=== PATIENT | male | born 1955 | race Caucasian/White ===

== ENCOUNTER 2020-02-21 06:17 | Outpatient (CLI) | payer BC, OTHER ==
[2020-02-21 10:21] VITALS: BMI 28.0
[2020-02-21 11:00] LABS: #Basophils 0.1 thou/uL (0.0-0.2); #Eosinphils 0.4 thou/uL (0.0-0.7); #Lymphocytes 2.6 thou/uL (1.20-3.40); #Monocytes 0.9 thou/uL (0.11-0.59); #Neutrophils 6.8 thou/uL (1.40-6.50); %Basophils 0.6 % (0.0-1.0); %Eosinophils 3.6 % (0.0-10.0); %Lymphocytes 24.1 % (21.0-51.0); %Monocytes 8.3 % (0.0-10.0); %Neutrophils 63.5 % (42.0-75.0); Hemoglobin 14.3 g/dL (14.0-18.0); Mean Corpuscular HGB CONC 31.2 g/dL (32.0-36.0); Mean Corpuscular Hemoglobin 28.2 pg (27.0-31.0); Mean Corpuscular Volume 90.4 fL (78.0-98.0); Mean Platelet Volume 9.4 fL (7.4-10.4); Platelet Count 174 thou/uL (130-400); RBC Distribution Width 12.4 % (11.5-14.5); Red Blood Cell (RBC) Count 5.07 mill/uL (4.70-6.10); White Blood Cell (WBC) Count 10.7 thou/uL (4.8-10.8)
[2020-02-21 11:19] LABS: Anion Gap 14 mmol/L (10-20); BUN (Urea Nitrogen) 20 mg/dL (8.4-25.7); Calc. Creatinine Clearance 61 mL/min (70-130); Calcium 9.3 mg/dL (7.8-10.44); Carbon Dioxide 25 mmol/L (23-31); Chloride 103 mmol/L (98-107); Estimated GFR-MDRD 47; Glucose 86 mg/dL (80-115); Potassium 3.8 mmol/L (3.5-5.1); Sodium 138 mmol/L (136-145)
[2020-02-21 11:21] LABS: INR-International Normal Ratio 0.9; PTT 29.7 SEC (22.9-36.1); Prothrombin Time 11.7 sec (12.0-14.7)
[2020-02-21 18:43] LABS: SARS-CoV-2 MS2 Positive; SARS-CoV-2 N Gene Negative; SARS-CoV-2 S Gene Negative; SARS-CoV-2 orf1ab Negative
--- NOTE | 2020-02-21 21:10 | EKG ---
Test Reason : Blood Pressure : / mmHG Vent. Rate : 063 BPM Atrial Rate : 063 BPM P-R Int : 158 ms QRS Dur : 086 ms QT Int : 426 ms P-R-T Axes : 043 048 033 degrees QTc Int : 435 ms Normal sinus rhythm Minimal voltage criteria for LVH, may be normal variant Borderline ECG No previous ECGs available Confirmed by Flo SOUZA ([id number]) on 02/21/2020 9:10:15 PM Referred By: PAT Confirmed By:Flo SOUZA
== END 2020-02-21 06:18 | disposition home or self-care (01) ==
LOC: LABBT 06:17
PROVIDERS: ATTEND Surgery
DX: Z01.818 Encounter for other preprocedural examination (principal); Z11.59 Encounter for screening for other viral diseases; M48.062 Spinal stenosis, lumbar region with neurogenic claudication; M54.16 Radiculopathy, lumbar region; M21.371 Foot drop, right foot
CPT/HCPCS: 80048; 85025; 85610; 85730; 87635; 93005; 93010; U0003

== ENCOUNTER 2020-02-22 07:59 | Observation (INO) | payer BC ==
[2020-02-22] MEDS ORDERED: Fentanyl 100 MCG/2 ML VIAL ONE ×3 (09:41→14:24)
[2020-02-22] MEDS ORDERED: Thrombin 5000 UNITS/5 ML VIAL ONE ×2 (10:13→12:36)
[2020-02-22] MEDS ORDERED: Mag-Al 1200 mg/1200 mg/30 ML UDCUP PO PRN (13:38)
[2020-02-22] MEDS ORDERED: tiZANidine HCl 4 MG TAB PO PRN (13:38)
[2020-02-22] MEDS ORDERED: Bisacodyl 10 MG SUPP PR PRN (13:38)
[2020-02-22] MEDS ORDERED: Ondansetron PF 4 MG/2 ML Vial IVP PRN (13:38)
[2020-02-22] MEDS ORDERED: Milk Of Magnesia 30 ML UDCUP PO PRN (13:38)
[2020-02-22] MEDS ORDERED: Fleet Enema 133 ML BOT PR PRN (13:38)
[2020-02-22] MEDS ORDERED: Acetaminophen/Codeine 30-300mg Tablet PO PRN (13:38)
[2020-02-22] MEDS ORDERED: Acetaminophen 325 MG TAB PO PRN (13:38)
[2020-02-22] MEDS ORDERED: PACU-Morphine 4MG/ML VIAL SLOW IVP PRN (13:45)
[2020-02-22] MEDS ORDERED: Promethazine HCl 25 MG/ML VIAL IM PRN (13:45)
[2020-02-22] MEDS ORDERED: HYDROmorphone 2 MG/ML VIAL SLOW IVP PRN (13:45)
[2020-02-22] MEDS ORDERED: Morphine Sulfate 2 MG/ML SYRINGE SLOW IVP PRN (13:45)
[2020-02-22] MEDS ORDERED: Promethazine HCl 25 MG/ML VIAL SLOW IVP PRN (13:45)
[2020-02-22] MEDS ORDERED: Ondansetron HCl/PF 4 MG/2 ML Vial IVP PRN (13:45)
[2020-02-22] MEDS ORDERED: Meperidine HCl/PF 25 MG/ML VIAL SLOW IVP PRN (13:45)
[2020-02-22] MEDS ORDERED: Promethazine HCl 25 MG/ML VIAL ONE (14:23)
[2020-02-22] MEDS ORDERED: Dexamethasone 10 MG/ML VIAL SLOW IVP SCH (14:48)
[2020-02-22 15:45] VITALS: BMI 27.1
[2020-02-22] MEDS: Sodium Chloride 0.9% 1,000 ML IV SCH (15:57)
[2020-02-22] MEDS ORDERED: Dexamethasone 20 MG/5 ML VIAL ONE (16:07)
[2020-02-22] MEDS ORDERED: EPHEDRINE 25 MG/5 ML SYRINGE ONE (16:07)
[2020-02-22] MEDS ORDERED: Glycopyrrolate 0.2 MG/ML 5 ML SYRINGE ONE (16:07)
[2020-02-22] MEDS ORDERED: PROPOFOL 200 MG/20 ML VIAL ONE (16:07)
[2020-02-22] MEDS ORDERED: Rocuronium Bromide 10 MG/ML (10ML VIAL) ONE (16:07)
[2020-02-22] MEDS ORDERED: PHENYLEPHRINE-NS 100 MCG/ML 10 ML SYRINGE ONE (16:07)
[2020-02-22] MEDS ORDERED: Lidocaine 1% PF 5 ML VIAL ONE (16:07)
[2020-02-22] MEDS ORDERED: Ondansetron PF 4 MG/2 ML Vial ONE (16:07)
[2020-02-22] MEDS ORDERED: CEFAZOLIN 2 GM in Premix Bag 1 BAG IVPB SCH (17:00)
[2020-02-22] MEDS: HYDROcodone/Acetaminophen 7.5/325 mg Tablet PO PRN ×2 (17:42→21:30)
[2020-02-22] MEDS: CEFAZOLIN 2 GM in Premix Bag 1 BAG IVPB SCH (20:03)
[2020-02-22] MEDS: traMADol HCl 50 MG TAB PO PRN (23:12)
[2020-02-23] MEDS: HYDROcodone/Acetaminophen 7.5/325 mg Tablet PO PRN ×4 (01:27→16:05)
[2020-02-23] MEDS: CEFAZOLIN 2 GM in Premix Bag 1 BAG IVPB SCH (05:07)
[2020-02-23 06:07] LABS: #Lymphocytes 1.6 thou/uL (1.20-3.40); #Monocytes 1.2 thou/uL (0.11-0.59); #Neutrophils 13.1 thou/uL (1.40-6.50); %Basophils 0.1 % (0.0-1.0); %Eosinophils 0.2 % (0.0-10.0); %Lymphocytes 9.7 % (21.0-51.0); %Monocytes 7.6 % (0.0-10.0); %Neutrophils 82.3 % (42.0-75.0); Hemoglobin 12.2 g/dL (14.0-18.0); Mean Corpuscular HGB CONC 31.9 g/dL (32.0-36.0); Mean Corpuscular Hemoglobin 28.7 pg (27.0-31.0); Mean Platelet Volume 9.4 fL (7.4-10.4); Platelet Count 144 thou/uL (130-400); RBC Distribution Width 12.1 % (11.5-14.5); Red Blood Cell (RBC) Count 4.26 mill/uL (4.70-6.10); White Blood Cell (WBC) Count 15.9 thou/uL (4.8-10.8)
--- NOTE | 2020-02-23 06:14 | OP ---
DATE OF PROCEDURE: 02/22/2020 LOCATION: OR 12. [employer]NAGER: Monica Everett PA-C. WOUND CLASSIFICATION: Type 1 wound. PREPROCEDURE DIAGNOSES: Multilevel lumbar stenosis with low back and leg pain and foot weakness. POSTPROCEDURE DIAGNOSES: Multilevel lumbar stenosis with low back and leg pain and foot weakness. PROCEDURE PERFORMED: L2-L3, L3-L4, L4-L5, and L5-S1 laminectomies, partial facetectomies, and foraminotomies. DESCRIPTION OF PROCEDURE: After informed consent was obtained from the patient, the patient was brought to the OR. Proper patient, pause, and identification were carried out. He was placed under excellent general endotracheal anesthesia and positioned prone on the OR table. All appropriate points were padded. We identified the L2 through S1 dorsal spines and lamina. A linear gurdeep was made over this region. This area was sterilely cleansed, prepared, and draped and proper patient, pause, and identification were carried out. The wound was then opened with a combination of sharp, monopolar, and blunt dissection. The L2, L3, L4, L5, and S1 dorsal spines and lamina were all exposed. Localization film confirmed our area of interest. We then performed L2, L3, L4, L5, S1 laminectomies, partial facetectomies, and foraminotomies with excellent decompression of common dural tube and nerve roots. There was no spinal fluid leak. Copious irrigation and maximal hemostasis occurred throughout. The wound was then closed in anatomic layers following sprinkling of vancomycin powder. The patient then emerged from anesthesia. Job ID: [id number]
[2020-02-23 06:28] LABS: Anion Gap 12 mmol/L (10-20); BUN (Urea Nitrogen) 20 mg/dL (8.4-25.7); Calc. Creatinine Clearance 69 mL/min (70-130); Calcium 8.3 mg/dL (7.8-10.44); Carbon Dioxide 25 mmol/L (23-31); Chloride 102 mmol/L (98-107); Estimated GFR-MDRD 57; Glucose 100 mg/dL (80-115); Potassium 4.1 mmol/L (3.5-5.1); Sodium 135 mmol/L (136-145)
[2020-02-23] MEDS: Sodium Chloride 0.9% 1,000 ML IV SCH ×2 (06:30→17:06)
[2020-02-23] MEDS ORDERED: Ketorolac Tromethamine 30 MG/ML VIAL IVP PRN (08:05)
[2020-02-23] MEDS: traMADol HCl 50 MG TAB PO PRN (08:06)
[2020-02-23] MEDS: Hydrochlorothiazide 25 MG TAB PO SCH (08:07)
[2020-02-23] MEDS: NIFEdipine XL 90 MG TAB PO SCH (08:08)
[2020-02-23] MEDS: Bupropion 150 MG XL TAB PO SCH (08:09)
[2020-02-23] MEDS: Nebivolol HCl 5 MG TAB PO SCH (08:09)
[2020-02-23] MEDS: Venlafaxine HCl XR 150 MG CAP PO SCH (08:09)
[2020-02-23] MEDS: Losartan 25 MG TAB PO SCH (08:10)
[2020-02-23] MEDS ORDERED: Ketorolac Tromethamine 15 MG/ML VIAL IVP SCH (08:15)
[2020-02-23] MEDS ORDERED: Ketorolac Tromethamine 30 MG/ML VIAL IVP SCH (08:15)
[2020-02-23] MEDS: Potassium Chloride 10 MEQ TAB PO SCH (09:15)
--- NOTE | 2020-02-23 11:06 | PRG ---
DATE OF SERVICE: Mr. Wolf is doing well postoperative day 1 from L2-S1 laminectomy, partial facetectomy, foraminotomies, very pleased with how he is doing as he has had resolution of his leg pain. He does have low back pain related to incisional pain and he needs another day in the hospital for pain control. We will plan to dismiss him likely tomorrow. Job ID: [id number]
[2020-02-23] MEDS: Morphine 2 MG/ML SYRINGE SLOW IVP PRN ×2 (16:05→21:39)
[2020-02-24] MEDS: HYDROcodone/Acetaminophen 7.5/325 mg Tablet PO PRN ×3 (01:50→17:06)
[2020-02-24] MEDS: Sodium Chloride 0.9% 1,000 ML IV SCH ×2 (05:30→20:02)
[2020-02-24] MEDS: Bupropion 150 MG XL TAB PO SCH (08:21)
[2020-02-24] MEDS: Hydrochlorothiazide 25 MG TAB PO SCH (08:22)
[2020-02-24] MEDS: NIFEdipine XL 90 MG TAB PO SCH (08:22)
[2020-02-24] MEDS: Nebivolol HCl 5 MG TAB PO SCH (08:22)
[2020-02-24] MEDS: Potassium Chloride 10 MEQ TAB PO SCH (08:23)
[2020-02-24] MEDS: Losartan 25 MG TAB PO SCH (08:23)
[2020-02-24] MEDS: Venlafaxine HCl XR 150 MG CAP PO SCH (08:28)
[2020-02-24] MEDS: traMADol HCl 50 MG TAB PO PRN (10:15)
--- NOTE | 2020-02-24 11:20 | PRG ---
DATE OF SERVICE: 02/24/2020 Mr. Wolf is doing well following L2 through S1 laminectomy at postoperative day #2. His pain was better controlled. He has met criteria for dismissal. We will discharge him. Job ID: [id number]
[2020-02-24] MEDS: Ketorolac Tromethamine 30 MG/ML VIAL IVP SCH ×3 (11:45→22:34)
[2020-02-25] MEDS: Ketorolac Tromethamine 30 MG/ML VIAL IVP SCH (04:40)
[2020-02-25 08:25] VITALS: BP 137/84; TEMP 98.8
[2020-02-25] MEDS: Hydrochlorothiazide 25 MG TAB PO SCH (08:32)
[2020-02-25] MEDS: Losartan 25 MG TAB PO SCH (08:32)
[2020-02-25] MEDS: Nebivolol HCl 5 MG TAB PO SCH (08:32)
[2020-02-25] MEDS: Potassium Chloride 10 MEQ TAB PO SCH (08:33)
[2020-02-25] MEDS: NIFEdipine XL 90 MG TAB PO SCH (08:33)
[2020-02-25] MEDS: Bupropion 150 MG XL TAB PO SCH (08:33)
[2020-02-25] MEDS: Venlafaxine HCl XR 150 MG CAP PO SCH (08:33)
[2020-02-25] MEDS: HYDROcodone/Acetaminophen 7.5/325 mg Tablet PO PRN (10:09)
[2020-02-25] MEDS: Sodium Chloride 0.9% 1,000 ML IV SCH (10:10)
--- NOTE | 2020-02-25 10:59 | DIS ---
DATE OF ADMISSION: 02/24/2020 DATE OF DISCHARGE: 02/25/2020 ADMISSION DIAGNOSES: Status post lumbar laminectomy. DISCHARGE DIAGNOSIS: Status post lumbar laminectomy. Mr. Wolf was admitted to [facility] for postoperative care after lumbar decompression. His hospital course was uncomplicated. No consultations were ordered. His pain was well controlled with our usual oral and IV pain medications. He ambulated early and was discharged home with outpatient followup planned in 2 weeks. Job ID: [id number]
== END 2020-02-25 10:55 | disposition home or self-care (01) ==
LOC: SDC 07:59 → SURG B 15:35 → SDC 02-24 13:20 → SURG B 02-24 13:20
PROVIDERS: ADMIT Surgery; ATTEND Surgery
PROC: 01NB0ZZ Release Lumbar Nerve, Open Approach (ICD-10-PCS; principal; 2020-02-25)
DX: M48.061 Spinal stenosis, lumbar region without neurogenic claudication (principal); M54.16 Radiculopathy, lumbar region; I12.9 Hypertensive chronic kidney disease with stage 1 through stage 4 chronic kidney disease, or unspecified chronic kidney disease; N18.9 Chronic kidney disease, unspecified; F17.200 Nicotine dependence, unspecified, uncomplicated; Z79.899 Other long term (current) drug therapy; Z88.8 Allergy status to other drugs, medicaments and biological substances
CPT/HCPCS: 36415; 76000; 80048; 85025; 96374; 96376; G0378; J0690; J1100; J1885; J2001; J2270; J2405; J2550; J2704; J3010; J3370

== ENCOUNTER 2020-06-05 07:34 | Outpatient (CLI) | payer BC, OTHER ==
[2020-06-05 14:36] LABS: Hemoglobin 13.7 g/dL (14.0-18.0); Mean Corpuscular HGB CONC 32.5 g/dL (32.0-36.0); Mean Corpuscular Volume 89.1 fL (78.0-98.0); Mean Platelet Volume 9.6 fL (7.4-10.4); Platelet Count 228 thou/uL (130-400); RBC Distribution Width 12.7 % (11.5-14.5); Red Blood Cell (RBC) Count 4.71 mill/uL (4.70-6.10); White Blood Cell (WBC) Count 10.5 thou/uL (4.8-10.8)
[2020-06-05 14:42] LABS: Anion Gap 18 mmol/L (10-20); BUN (Urea Nitrogen) 26 mg/dL (8.4-25.7); Calc. Creatinine Clearance 0 mL/min (70-130); Calcium 9.7 mg/dL (7.8-10.44); Carbon Dioxide 23 mmol/L (23-31); Chloride 100 mmol/L (98-107); Estimated GFR-MDRD 47; Glucose 89 mg/dL (80-115); Potassium 3.5 mmol/L (3.5-5.1); Sodium 137 mmol/L (136-145)
[2020-06-05 14:43] LABS: Bilirubin Negative (Negative); Blood, Urine Trace (Negative); Clarity Clear (Clear); Glucose, Urine (Dipstick) Normal (Negative); Ketone, Urine Negative (Negative); Leukocyte 500 Leu/uL (Negative); Nitrite Negative (Negative); Protein, Urine (Dipstick) 10 mg/dL (Neg-Trace); Specific Gravity, Urine 1.013 (1.002-1.036); Squamous Epithelial 0-3 HPF (0-3); Urobilinogen Normal mg/dL (Less than 2); WBC/HPF Greater than 50 HPF (0-3)
[2020-06-05 14:50] LABS: Bacteria/HPF 1+ HPF (None Seen)
[2020-06-06 12:51] LABS: SARS-CoV-2 MS2 Positive; SARS-CoV-2 N Gene Negative; SARS-CoV-2 S Gene Negative; SARS-CoV-2 by NAA Not Detected (NotDetected); SARS-CoV-2 orf1ab Negative
== END 2020-06-05 07:35 | disposition home or self-care (01) ==
LOC: LABBT 07:34
PROVIDERS: ATTEND Urology
DX: Z01.818 Encounter for other preprocedural examination (principal); Z20.828 Contact with and (suspected) exposure to other viral communicable diseases; N40.0 Benign prostatic hyperplasia without lower urinary tract symptoms
CPT/HCPCS: 80048; 81001; 85027; 87077; 87086; 87186; 87635; 93005; 93010; U0003

== ENCOUNTER 2020-06-07 14:54 | Emergency (ER) | payer BC, OTHER ==
[2020-06-07 15:41] LABS: #Basophils 0.1 thou/uL (0.0-0.2); #Eosinphils 0.3 thou/uL (0.0-0.7); #Lymphocytes 2.6 thou/uL (1.20-3.40); #Monocytes 0.6 thou/uL (0.11-0.59); #Neutrophils 5.6 thou/uL (1.40-6.50); %Basophils 0.8 % (0.0-1.0); %Eosinophils 3.1 % (0.0-10.0); %Lymphocytes 28.3 % (21.0-51.0); %Monocytes 6.6 % (0.0-10.0); %Neutrophils 61.3 % (42.0-75.0); Mean Corpuscular HGB CONC 32.6 g/dL (32.0-36.0); Mean Corpuscular Hemoglobin 29.5 pg (27.0-31.0); Mean Corpuscular Volume 90.5 fL (78.0-98.0); Mean Platelet Volume 8.8 fL (7.4-10.4); Platelet Count 214 thou/uL (130-400); RBC Distribution Width 12.8 % (11.5-14.5); Red Blood Cell (RBC) Count 4.42 mill/uL (4.70-6.10); White Blood Cell (WBC) Count 9.1 thou/uL (4.8-10.8)
[2020-06-07 16:03] LABS: Anion Gap 14 mmol/L (10-20); BUN (Urea Nitrogen) 21 mg/dL (8.4-25.7); CK (CPK) 37 U/L (30-200); Calc. Creatinine Clearance 0 mL/min (70-130); Calcium 8.7 mg/dL (7.8-10.44); Carbon Dioxide 25 mmol/L (23-31); Chloride 106 mmol/L (98-107); Estimated GFR-MDRD 49; Glucose 116 mg/dL (80-115); Potassium 3.5 mmol/L (3.5-5.1); Sodium 141 mmol/L (136-145)
[2020-06-07] MEDS ORDERED: Fentanyl 100 MCG/2 ML VIAL ONE (16:07)
--- NOTE | 2020-06-07 16:08 | CT ---
CT BRAIN WITHOUT CONTRAST: HISTORY: Dizziness, fall, trauma to the right side of the head. Headache FINDINGS: No evidence of acute infarct, hemorrhage, midline shift or abnormal extra-axial fluid collections is seen. The ventricular size is appropriate and the basilar cisterns are patent. The bony calvarium is intact. The mastoid air cells are well aerated. There is mucosal disease in the ethmoid sinuses. IMPRESSION: No CT evidence of acute intracranial process.
--- NOTE | 2020-06-07 16:13 | CT ---
CT CERVICAL SPINE WITH CORONAL AND SAGITTAL REFORMATIONS AND NO IV CONTRAST: HISTORY: Fall, neck pain FINDINGS: Multilevel degenerative changes are present. There is fusion at C2-3 level. There is loss of cervical lordosis with straightening of the cervical spine. No fracture, subluxation or facet malalignment is identified. No prevertebral soft tissue swelling is apparent. The visualized lung apices are unremarkable. IMPRESSION: No CT evidence for fracture or traumatic subluxation.
--- NOTE | 2020-06-07 17:13 | RAD ---
PORTABLE CHEST ONE VIEW: 05/07/20 at 4:22 p.m. HISTORY: Dizziness, fall. FINDINGS: The heart size is normal. The aorta is tortuous. The lungs are well expanded without lobar consolidat ion, pneumothoraces, or pleural effusions. IMPRESSION: No radiographic evidence of acute cardiopulmonary process. POS: OFF
== END 2020-06-07 17:10 | disposition home or self-care (01) ==
LOC: ERS 14:54
DX: R55 Syncope and collapse (principal); S01.111A Laceration without foreign body of right eyelid and periocular area, initial encounter; I10 Essential (primary) hypertension; F17.210 Nicotine dependence, cigarettes, uncomplicated; W18.30XA Fall on same level, unspecified, initial encounter
CPT/HCPCS: 36415; 70450; 71045; 72125; 80048; 82550; 83735; 83880; 84484; 85025; 93005; 96374; J3010

== ENCOUNTER 2020-06-22 06:35 | Outpatient (CLI) | payer BC, OTHER ==
[2020-06-22 16:33] LABS: Bacteria/HPF None Seen HPF (None Seen); Bilirubin Negative (Negative); Blood, Urine Negative (Negative); Clarity Clear (Clear); Glucose, Urine (Dipstick) Normal (Negative); Ketone, Urine Negative (Negative); Leukocyte 25 Leu/uL (Negative); Nitrite Negative (Negative); Protein, Urine (Dipstick) 30 mg/dL (Neg-Trace); RBC/HPF 0-3 HPF (0-3); Specific Gravity, Urine 1.021 (1.002-1.036); Squamous Epithelial 0-3 HPF (0-3); Urobilinogen Normal mg/dL (Less than 2)
[2020-06-23 14:47] LABS: SARS-CoV-2 MS2 Positive; SARS-CoV-2 N Gene Negative; SARS-CoV-2 S Gene Negative; SARS-CoV-2 by NAA Not Detected (NotDetected); SARS-CoV-2 orf1ab Negative
== END 2020-06-22 06:36 | disposition home or self-care (01) ==
LOC: LABBT 06:35
PROVIDERS: ATTEND Urology
DX: Z01.812 Encounter for preprocedural laboratory examination (principal); N40.1 Benign prostatic hyperplasia with lower urinary tract symptoms; Z20.828 Contact with and (suspected) exposure to other viral communicable diseases
CPT/HCPCS: 81001; 87086; 87635; U0003

== ENCOUNTER 2020-06-26 07:57 | Day surgery (SDC) | payer BC ==
[2020-06-26] MEDS ORDERED: Levofloxacin 500 mg/D5W 100 ml Premix Bag ONE (08:24)
[2020-06-26] MEDS ORDERED: Ondansetron PF 4 MG/2 ML Vial ONE ×2 (08:31→14:15)
[2020-06-26] MEDS ORDERED: Famotidine/PF 20 mg/2ml Vial ONE (08:31)
[2020-06-26] MEDS ORDERED: Scopolamine 1.5 mg/72 hour Patch ONE (08:31)
[2020-06-26] MEDS ORDERED: Fentanyl 100 MCG/2 ML VIAL ONE ×3 (12:09→13:57)
[2020-06-26] MEDS ORDERED: HYDROmorphone 2 MG/ML VIAL SLOW IVP PRN (12:46)
[2020-06-26] MEDS ORDERED: Ondansetron HCl/PF 4 MG/2 ML Vial IVP PRN (12:46)
[2020-06-26] MEDS ORDERED: Promethazine HCl 25 MG/ML VIAL SLOW IVP PRN (12:46)
[2020-06-26] MEDS ORDERED: Oxybutynin 5 MG TAB ONE (13:36)
[2020-06-26] MEDS ORDERED: Ketorolac Tromethamine 30 MG/ML VIAL ONE (13:36)
[2020-06-26] MEDS ORDERED: PROPOFOL 200 MG/20 ML VIAL ONE (14:15)
[2020-06-26] MEDS ORDERED: Lidocaine 1% PF 5 ML VIAL ONE (14:15)
[2020-06-26] MEDS ORDERED: Dexamethasone 20 MG/5 ML VIAL ONE (14:15)
[2020-06-26] MEDS ORDERED: HYDROcodone/Acetaminophen 5/325 mg Tablet ONE (14:44)
--- NOTE | 2020-06-26 17:58 | OP ---
DATE OF PROCEDURE: 06/26/2020 PREOPERATIVE DIAGNOSIS: Bladder neck contracture. POSTOPERATIVE DIAGNOSIS: Bladder neck contracture. PROCEDURE PERFORMED: Transurethral resection of bladder neck contracture - PlasmaButton. ANESTHESIA: General. COMPLICATIONS: None. BLOOD LOSS: None. SPECIMEN: None. DESCRIPTION OF PROCEDURE: After informed consent, the patient was taken to the operating room, transferred to the table under his own power. Anesthesia was established. A time-out was performed showing the correct patient, site, and procedure. Preoperative antibiotics were administered. He was prepped and draped in the lithotomy position. 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 I used the PlasmaButton at this point to resect the bladder neck and regrowth from the bladder neck back to the verumontanum. This was carried out laterally and then the bladder entered, which was then systematically examined, noting no mucosal abnormalities. Both ureters were normal in appearance, effluxing urine and uninvolved with resection. There was no active bleeding, and so at this point, once adequate resection was completed, the scope was withdrawn and a 20-Malay catheter placed with 20 mL instilled in the balloon. This was connected to bag drainage. He was awoken from anesthesia, transferred back to his hospital bed and taken to PACU in stable condition, where he will be discharged home upon recovery. Job ID: [id number]
== END 2020-06-26 15:20 | disposition home or self-care (01) ==
LOC: SDC 07:57
PROVIDERS: ATTEND Urology
PROC: 0TBC8ZZ Excision of Bladder Neck, Via Natural or Artificial Opening Endoscopic (ICD-10-PCS; principal; 2020-06-26)
DX: N40.1 Benign prostatic hyperplasia with lower urinary tract symptoms (principal); N13.8 Other obstructive and reflux uropathy; E29.1 Testicular hypofunction; Z79.899 Other long term (current) drug therapy; Z88.8 Allergy status to other drugs, medicaments and biological substances
CPT/HCPCS: J1100; J1885; J1956; J2405; J2704; J3010; S0028

== ENCOUNTER 2022-02-07 12:59 | Outpatient (CLI) | payer BC, MEDICARE | END 2022-02-07 13:00 | disposition home or self-care (01) | LOC: TBSIIMAG 12:59 | PROVIDERS: ATTEND Surgery | DX: M47.22 Other spondylosis with radiculopathy, cervical region (principal) | CPT/HCPCS: 72050; 72141 ==

== ENCOUNTER 2022-03-07 16:38 | Emergency (ER) | payer BC, MEDICARE ==
[~2022-03-07 16:38] MED LIST: Iopamidol-370 76% 500 ML 1 ML ONE
[2022-03-07] MEDS ORDERED: Morphine 4 MG/ML VIAL ONE ×2 (19:11→21:36)
[2022-03-07] MEDS ORDERED: Diazepam 5 MG TAB ONE (19:11)
[2022-03-07 19:50] LABS: #Lymphocytes 0.7 thou/uL (1.20-3.40); #Monocytes 0.6 thou/uL (0.11-0.59); #Neutrophils 8.4 thou/uL (1.40-6.50); %Basophils 0.1 % (0.0-1.0); %Eosinophils 0.3 % (0.0-10.0); %Lymphocytes 6.9 % (21.0-51.0); %Monocytes 6.5 % (0.0-10.0); %Neutrophils 86.3 % (42.0-75.0); Hemoglobin 15.1 g/dL (14.0-18.0); Mean Corpuscular HGB CONC 31.6 g/dL (32.0-36.0); Mean Corpuscular Hemoglobin 29.7 pg (27.0-31.0); Mean Platelet Volume 8.6 fL (7.4-10.4); Platelet Count 136 thou/uL (130-400); RBC Distribution Width 13.1 % (11.5-14.5); Red Blood Cell (RBC) Count 5.09 mill/uL (4.70-6.10); White Blood Cell (WBC) Count 9.7 thou/uL (4.8-10.8)
[2022-03-07 20:17] LABS: ALT (SGPT) 16 U/L (8-55); AST (SGOT) 14 U/L (5-34); Albumin 3.8 g/dL (3.4-4.8); Alkaline Phosphatase 51 U/L (40-110); Anion Gap 13 mmol/L (10-20); BUN (Urea Nitrogen) 15 mg/dL (8.4-25.7); Bilirubin, Total 0.7 mg/dL (0.2-1.2); Calc. Creatinine Clearance 0 mL/min (70-130); Calcium 9.2 mg/dL (7.8-10.44); Carbon Dioxide 27 mmol/L (23-31); Chloride 101 mmol/L (98-107); Glucose 89 mg/dL (80-115); Potassium 3.8 mmol/L (3.5-5.1); Protein, Total 6.8 g/dL (5.8-8.1); Sodium 137 mmol/L (136-145)
== END 2022-03-07 21:50 | disposition home or self-care (01) ==
LOC: ERS 16:38
DX: M51.26 Other intervertebral disc displacement, lumbar region (principal); I10 Essential (primary) hypertension; F17.210 Nicotine dependence, cigarettes, uncomplicated
CPT/HCPCS: 36415; 71270; 80053; 85025; 96372; 96374; J2270

== ENCOUNTER 2022-03-24 08:30 | Inpatient (IN) | payer BC, MEDICARE ==
[2022-03-24 13:21] LABS: Hemoglobin 16.6 g/dL (13.5-17.5); Mean Corpuscular HGB CONC 32.4 g/dL (32.0-36.0); Mean Corpuscular Hemoglobin 28.2 pg (27.0-33.0); Mean Corpuscular Volume 86.9 fl (81.2-95.1); Mean Platelet Volume 11.5 fl (7.4-10.4); Platelet Count 238 10x3/uL (150-450); RBC Distribution Width 13.8 % (11.5-14.5); Red Blood Cell (RBC) Count 5.89 10x6/uL (4.32-5.72); White Blood Cell (WBC) Count 11.9 10x3/uL (3.5-10.5)
[2022-03-24 13:35] LABS: PTT 27.2 sec (22.0-33.0); Prothrombin Time 10.4 sec (9.5-12.1)
[2022-03-24 13:48] LABS: Anion Gap 18 mmol/L (10-20); BUN (Urea Nitrogen) 17 mg/dL (8.4-25.7); Calc. Creatinine Clearance 0 mL/min (70-130); Calcium 10.6 mg/dL (7.8-10.44); Carbon Dioxide 27 mmol/L (23-31); Chloride 97 mmol/L (98-107); Glucose 78 mg/dL (80-115); Potassium 4.7 mmol/L (3.5-5.1); Sodium 137 mmol/L (136-145)
[2022-03-27] MEDS ORDERED: Midazolam HCl 2 mg/2 ml Vial ONE (06:12)
[2022-03-27] MEDS ORDERED: fentaNYL Citrate/PF 100 MCG/2 ML SYRINGE ONE ×3 (06:12→13:17)
[2022-03-27] MEDS ORDERED: HYDROmorphone 2 MG/ML VIAL ONE (06:13)
[2022-03-27] MEDS ORDERED: Thrombin 5000 UNITS/5 ML VIAL ONE (06:33)
[2022-03-27] MEDS ORDERED: Bacitracin Zinc Ointment 30 gm TUBE ONE (06:33)
[2022-03-27] MEDS ORDERED: Vecuronium 10 MG VIAL ONE (07:05)
[2022-03-27] MEDS ORDERED: Rocuronium Bromide 10 MG/ML (10ML VIAL) ONE (07:05)
[2022-03-27] MEDS ORDERED: Ondansetron PF 4 MG/2 ML Vial ONE (07:05)
[2022-03-27] MEDS ORDERED: PROPOFOL 200 MG/20 ML VIAL ONE (07:05)
[2022-03-27] MEDS ORDERED: ePHEDrine 50 MG/ML VIAL ONE (07:05)
[2022-03-27] MEDS ORDERED: Dexamethasone 20 MG/5 ML VIAL ONE (07:05)
[2022-03-27] MEDS ORDERED: CEFAZOLIN 2 GM VIAL ONE (07:15)
[2022-03-27] MEDS ORDERED: Sodium Chloride 0.9% 100 ML ONE (07:15)
[2022-03-27] MEDS ORDERED: Albumin 5% 500 ML ONE (08:30)
[2022-03-27] MEDS ORDERED: SUGAMMADEX SODIUM 200 MG/2 ML VIAL ONE (09:24)
[2022-03-27] MEDS ORDERED: Ondansetron PF 4 MG/2 ML Vial IVP PRN (12:58)
[2022-03-27] MEDS ORDERED: traMADol HCl 50 MG TAB PO PRN (12:58)
[2022-03-27] MEDS ORDERED: Labetalol HCl 100 MG/20 ML VIAL ONE (13:03)
[2022-03-27] MEDS ORDERED: HYDROmorphone 2 MG/ML VIAL SLOW IVP PRN (13:09)
[2022-03-27] MEDS ORDERED: Promethazine HCl 25 MG/ML VIAL IM PRN (13:09)
[2022-03-27] MEDS ORDERED: Promethazine HCl 25 MG/ML VIAL IVPB PRN (13:09)
[2022-03-27] MEDS ORDERED: Ondansetron HCl/PF 4 MG/2 ML Vial IVP PRN (13:09)
[2022-03-27] MEDS ORDERED: Chloraseptic Spray 180 ml Bottle PO PRN (14:14)
[2022-03-27] MEDS: HYDROcodone/Acetaminophen 7.5/325 mg Tablet PO PRN ×2 (15:01→20:54)
[2022-03-27] MEDS: tiZANidine HCl 4 MG TAB PO PRN ×2 (15:01→22:11)
[2022-03-27] MEDS: CEFAZOLIN 2 GM in Sodium Chloride 0.9% 100 ML IVPB SCH ×2 (15:01→22:08)
[2022-03-27] MEDS: Sodium Chloride 0.9% 1,000 ML IV SCH (15:02)
[2022-03-27 15:44] VITALS: BMI 21.5
[2022-03-27] MEDS: Morphine 2 MG/ML VIAL SLOW IVP PRN ×5 (16:02→23:26)
[2022-03-27] MEDS: Acetaminophen/Codeine 30-300mg Tablet PO PRN (19:09)
[2022-03-27] MEDS: Labetalol HCl 100 MG/20 ML VIAL SLOW IVP PRN ×2 (20:53→23:28)
[2022-03-27] MEDS: Cepastat Lozenges 1 LOZ PO PRN (20:55)
[2022-03-28] MEDS ORDERED: HYDROcodone/Acetaminophen 7.5/325 mg Tablet PO PRN (00:03)
[2022-03-28] MEDS: Fentanyl 100 MCG/2 ML VIAL SLOW IVP PRN ×3 (00:15→08:28)
[2022-03-28] MEDS: hydrALAZINE 20 MG/ML VIAL SLOW IVP PRN ×4 (00:19→20:26)
[2022-03-28] MEDS: Cepastat Lozenges 1 LOZ PO PRN (00:19)
[2022-03-28] MEDS: Sodium Chloride 0.9% 1,000 ML IV SCH ×2 (02:25→15:32)
[2022-03-28] MEDS: CEFAZOLIN 2 GM in Sodium Chloride 0.9% 100 ML IVPB SCH ×3 (06:10→23:59)
[2022-03-28] MEDS: Acetaminophen/Codeine 30-300mg Tablet PO PRN (06:18)
[2022-03-28] MEDS: tiZANidine HCl 4 MG TAB PO PRN (06:18)
[2022-03-28 06:37] LABS: #Lymphocytes 1.4 thou/uL (1.20-3.40); #Monocytes 1.3 thou/uL (0.11-0.59); #Neutrophils 12.5 thou/uL (1.40-6.50); %Basophils 0.2 % (0.0-1.0); %Eosinophils 0.3 % (0.0-10.0); %Lymphocytes 9.4 % (21.0-51.0); %Monocytes 8.3 % (0.0-10.0); %Neutrophils 81.9 % (42.0-75.0); Mean Corpuscular HGB CONC 31.4 g/dL (32.0-36.0); Mean Corpuscular Volume 92.5 fL (78.0-98.0); Mean Platelet Volume 9.1 fL (7.4-10.4); Platelet Count 175 thou/uL (130-400); RBC Distribution Width 12.7 % (11.5-14.5); Red Blood Cell (RBC) Count 4.82 mill/uL (4.70-6.10); White Blood Cell (WBC) Count 15.3 thou/uL (4.8-10.8)
[2022-03-28 06:59] LABS: Anion Gap 14 mmol/L (10-20); BUN (Urea Nitrogen) 22 mg/dL (8.4-25.7); Calc. Creatinine Clearance 58 mL/min (70-130); Carbon Dioxide 23 mmol/L (23-31); Chloride 103 mmol/L (98-107); Glucose 99 mg/dL (80-115); Potassium 3.9 mmol/L (3.5-5.1); Sodium 136 mmol/L (136-145)
[2022-03-28] MEDS: Bupropion 150 MG XL TAB PO SCH (08:32)
[2022-03-28] MEDS: NIFEdipine XL 90 MG TAB PO SCH (08:32)
[2022-03-28] MEDS: Losartan 25 MG TAB PO SCH (08:33)
[2022-03-28] MEDS: Multivit, Therapeutic 1 TAB PO SCH (08:33)
[2022-03-28] MEDS: Potassium Chloride 10 MEQ TAB PO SCH (08:34)
[2022-03-28] MEDS: Hydrochlorothiazide 25 MG TAB PO SCH (08:40)
[2022-03-28] MEDS: Venlafaxine HCl XR 150 MG CAP PO SCH (08:40)
[2022-03-28] MEDS: Nebivolol HCl 5 MG TAB PO SCH (08:40)
[2022-03-28] MEDS ORDERED: Diazepam 5 MG TAB PO SCH (09:00)
[2022-03-28] MEDS ORDERED: diphenhydrAMINE 50 MG/ML VIAL IVP PRN (09:07)
[2022-03-28] MEDS ORDERED: Promethazine HCl 25 MG/ML VIAL IM PRN (09:07)
[2022-03-28] MEDS ORDERED: diphenhydrAMINE 25 MG CAP PO PRN (09:07)
[2022-03-28] MEDS ORDERED: Ondansetron PF 4 MG/2 ML Vial IVP PRN (09:07)
[2022-03-28] MEDS ORDERED: Naloxone HCl 0.4 mg/ml Vial IV PRN (09:07)
[2022-03-28] MEDS ORDERED: Zolpidem Tartrate 5 MG TAB PO PRN (09:07)
[2022-03-28] MEDS ORDERED: diphenhydrAMINE 50 MG/ML VIAL IM PRN (09:07)
[2022-03-28] MEDS ORDERED: Communication Order-Pharmacy FS SCH (09:15)
[2022-03-28] MEDS: fentaNYL Citrate/PF 2,000 MCG in Sodium Chloride 0.9% 60 ML IV PRN (11:21)
[2022-03-28 14:27] LABS: Bilirubin Negative (Negative); Blood, Urine 3+ (Negative); Clarity Turbid (Clear); Glucose, Urine (Dipstick) Normal (Negative); Ketone, Urine Negative (Negative); Leukocyte 250 Leu/uL (Negative); Nitrite Negative (Negative); Protein, Urine (Dipstick) Negative (Neg-Trace); RBC/HPF Greater than 50 HPF (0-3); Specific Gravity, Urine 1.013 (1.002-1.036); Squamous Epithelial None Seen HPF (0-3); Urobilinogen Normal mg/dL (Less than 2)
[2022-03-28 14:33] LABS: Bacteria/HPF Rare-Few HPF (None Seen)
[2022-03-28 14:34] LABS: Urine Culture Reflex Yes Yes
[2022-03-28 15:19] LABS: ALT (SGPT) 23 U/L (8-55); AST (SGOT) 27 U/L (5-34); Albumin 3.9 g/dL (3.4-4.8); Alkaline Phosphatase 63 U/L (40-110); Bilirubin, Direct 0.5 mg/dL (0.1-0.3); Bilirubin, Total 1.1 mg/dL (0.2-1.2); Protein, Total 6.7 g/dL (5.8-8.1)
[2022-03-28] MEDS ORDERED: Loratadine 10 MG TAB PO SCH (17:30)
[2022-03-28] MEDS ORDERED: Fluticasone Propionate Nasal Spray 16 gm Bottle NASAL SCH (17:30)
[2022-03-28] MEDS ORDERED: Labetalol HCl 100 MG/20 ML VIAL SLOW IVP PRN ×2 (18:39→18:43)
[2022-03-28] MEDS: Acetaminophen 325 MG TAB PO PRN (20:33)
[2022-03-28] MEDS ORDERED: tiZANidine HCl 4 MG TAB PO PRN (23:22)
[2022-03-29] MEDS: Acetaminophen 325 MG TAB PO PRN (05:21)
[2022-03-29] MEDS: Sodium Chloride 0.9% 1,000 ML IV SCH ×2 (05:23→19:08)
[2022-03-29] MEDS: CEFAZOLIN 2 GM in Sodium Chloride 0.9% 100 ML IVPB SCH ×3 (06:46→22:54)
[2022-03-29 07:00] LABS: #Eosinphils 0.1 thou/uL (0.0-0.7); #Lymphocytes 1.6 thou/uL (1.20-3.40); #Monocytes 1.6 thou/uL (0.11-0.59); #Neutrophils 12.9 thou/uL (1.40-6.50); %Basophils 0.2 % (0.0-1.0); %Eosinophils 0.3 % (0.0-10.0); %Lymphocytes 9.9 % (21.0-51.0); %Monocytes 9.7 % (0.0-10.0); %Neutrophils 79.8 % (42.0-75.0); Hemoglobin 15.3 g/dL (14.0-18.0); Mean Corpuscular HGB CONC 31.4 g/dL (32.0-36.0); Mean Corpuscular Hemoglobin 29.4 pg (27.0-31.0); Mean Corpuscular Volume 93.6 fL (78.0-98.0); Mean Platelet Volume 9.3 fL (7.4-10.4); Platelet Count 179 thou/uL (130-400); RBC Distribution Width 12.8 % (11.5-14.5); Red Blood Cell (RBC) Count 5.22 mill/uL (4.70-6.10); White Blood Cell (WBC) Count 16.2 thou/uL (4.8-10.8)
[2022-03-29 07:12] LABS: INR-International Normal Ratio 1.1; Prothrombin Time 14.1 sec (12.0-14.7)
[2022-03-29 07:13] LABS: PTT 36.3 sec (22.9-36.1)
[2022-03-29 07:34] LABS: ALT (SGPT) 22 U/L (8-55); AST (SGOT) 26 U/L (5-34); Alkaline Phosphatase 63 U/L (40-110); Anion Gap 14 mmol/L (10-20); BUN (Urea Nitrogen) 18 mg/dL (8.4-25.7); Bilirubin, Direct 0.6 mg/dL (0.1-0.3); Bilirubin, Total 1.1 mg/dL (0.2-1.2); Calc. Creatinine Clearance 70 mL/min (70-130); Calcium 9.7 mg/dL (7.8-10.44); Carbon Dioxide 27 mmol/L (23-31); Cardiac Risk 3.4 (Less than 4.5); Chloride 102 mmol/L (98-107); Cholesterol 130 mg/dl (< 200 Desired); Glucose 93 mg/dL (80-115); HDL Cholesterol 38 mg/dL (>60 Neg Risk); LDL Cholesterol, Calculated 76 mg/dL; Potassium 4.2 mmol/L (3.5-5.1); Protein, Total 7.4 g/dL (5.8-8.1); Sodium 139 mmol/L (136-145); Triglycerides 79 mg/dL (Less than 150)
[2022-03-29] MEDS: NIFEdipine XL 90 MG TAB PO SCH (11:22)
[2022-03-29] MEDS: Nebivolol HCl 5 MG TAB PO SCH (11:23)
[2022-03-29] MEDS: Bupropion 150 MG XL TAB PO SCH (11:24)
[2022-03-29] MEDS: Losartan 25 MG TAB PO SCH (11:24)
[2022-03-29] MEDS: Hydrochlorothiazide 25 MG TAB PO SCH (11:24)
[2022-03-29] MEDS: Venlafaxine HCl XR 150 MG CAP PO SCH (11:24)
[2022-03-29] MEDS: Multivit, Therapeutic 1 TAB PO SCH (11:25)
[2022-03-29] MEDS: Potassium Chloride 10 MEQ TAB PO SCH (11:25)
[2022-03-29] MEDS: Fluticasone Propionate Nasal Spray 16 gm Bottle NASAL SCH ×2 (11:25→20:32)
[2022-03-29] MEDS: Loratadine 10 MG TAB PO SCH (11:26)
[2022-03-29] MEDS: fentaNYL Citrate/PF 2,000 MCG in Sodium Chloride 0.9% 60 ML IV PRN (19:52)
[2022-03-30] MEDS: CEFAZOLIN 2 GM in Sodium Chloride 0.9% 100 ML IVPB SCH ×3 (06:22→23:19)
[2022-03-30] MEDS: Sodium Chloride 0.9% 1,000 ML IV SCH ×2 (06:25→19:46)
[2022-03-30 06:58] LABS: #Eosinphils 0.1 thou/uL (0.0-0.7); #Lymphocytes 2.1 thou/uL (1.20-3.40); #Monocytes 1.4 thou/uL (0.11-0.59); #Neutrophils 11.8 thou/uL (1.40-6.50); %Basophils 0.3 % (0.0-1.0); %Eosinophils 0.4 % (0.0-10.0); %Lymphocytes 13.4 % (21.0-51.0); %Monocytes 9.1 % (0.0-10.0); %Neutrophils 76.8 % (42.0-75.0); Hemoglobin 14.5 g/dL (14.0-18.0); Mean Corpuscular HGB CONC 31.3 g/dL (32.0-36.0); Mean Corpuscular Hemoglobin 29.2 pg (27.0-31.0); Mean Corpuscular Volume 93.4 fL (78.0-98.0); Mean Platelet Volume 9.3 fL (7.4-10.4); Platelet Count 177 thou/uL (130-400); RBC Distribution Width 12.7 % (11.5-14.5); Red Blood Cell (RBC) Count 4.96 mill/uL (4.70-6.10); White Blood Cell (WBC) Count 15.4 thou/uL (4.8-10.8)
[2022-03-30 07:21] LABS: Anion Gap 16 mmol/L (10-20); BUN (Urea Nitrogen) 21 mg/dL (8.4-25.7); Calc. Creatinine Clearance 80 mL/min (70-130); Calcium 9.4 mg/dL (7.8-10.44); Carbon Dioxide 24 mmol/L (23-31); Chloride 102 mmol/L (98-107); Glucose 78 mg/dL (80-115); Magnesium 1.9 mg/dL (1.6-2.6); Potassium 3.7 mmol/L (3.5-5.1); Sodium 138 mmol/L (136-145)
[2022-03-30] MEDS: Bupropion 150 MG XL TAB PO SCH (08:54)
[2022-03-30] MEDS: Losartan 25 MG TAB PO SCH (08:54)
[2022-03-30] MEDS: Nebivolol HCl 5 MG TAB PO SCH (08:55)
[2022-03-30] MEDS: Potassium Chloride 10 MEQ TAB PO SCH (08:55)
[2022-03-30] MEDS: Loratadine 10 MG TAB PO SCH (08:56)
[2022-03-30] MEDS: NIFEdipine XL 90 MG TAB PO SCH (08:56)
[2022-03-30] MEDS: Fluticasone Propionate Nasal Spray 16 gm Bottle NASAL SCH ×2 (08:56→19:46)
[2022-03-30] MEDS: Venlafaxine HCl XR 150 MG CAP PO SCH (08:56)
[2022-03-30] MEDS: Multivit, Therapeutic 1 TAB PO SCH (08:56)
[2022-03-30] MEDS: hydrALAZINE 20 MG/ML VIAL SLOW IVP PRN (18:02)
[2022-03-31] MEDS: CEFAZOLIN 2 GM in Sodium Chloride 0.9% 100 ML IVPB SCH (06:03)
[2022-03-31 06:19] LABS: #Eosinphils 0.3 thou/uL (0.0-0.7); #Monocytes 1.2 thou/uL (0.11-0.59); #Neutrophils 8.7 thou/uL (1.40-6.50); %Basophils 0.2 % (0.0-1.0); %Eosinophils 2.3 % (0.0-10.0); %Lymphocytes 16.2 % (21.0-51.0); %Monocytes 9.6 % (0.0-10.0); %Neutrophils 71.8 % (42.0-75.0); Hemoglobin 13.1 g/dL (14.0-18.0); Mean Corpuscular HGB CONC 31.8 g/dL (32.0-36.0); Mean Corpuscular Hemoglobin 29.6 pg (27.0-31.0); Mean Corpuscular Volume 93.2 fL (78.0-98.0); Mean Platelet Volume 9.1 fL (7.4-10.4); Platelet Count 174 thou/uL (130-400); RBC Distribution Width 12.6 % (11.5-14.5); Red Blood Cell (RBC) Count 4.44 mill/uL (4.70-6.10)
[2022-03-31 06:36] LABS: Anion Gap 15 mmol/L (10-20); BUN (Urea Nitrogen) 25 mg/dL (8.4-25.7); Calc. Creatinine Clearance 86 mL/min (70-130); Calcium 8.8 mg/dL (7.8-10.44); Carbon Dioxide 23 mmol/L (23-31); Chloride 104 mmol/L (98-107); Glucose 79 mg/dL (80-115); Potassium 3.5 mmol/L (3.5-5.1); Sodium 138 mmol/L (136-145)
[2022-03-31 07:50] VITALS: BP 179/101; TEMP 98.5
[2022-03-31] MEDS: NIFEdipine XL 90 MG TAB PO SCH (08:38)
[2022-03-31] MEDS: Loratadine 10 MG TAB PO SCH (08:38)
[2022-03-31] MEDS: Bupropion 150 MG XL TAB PO SCH (08:39)
[2022-03-31] MEDS: Nebivolol HCl 5 MG TAB PO SCH (08:39)
[2022-03-31] MEDS: Potassium Chloride 10 MEQ TAB PO SCH (08:39)
[2022-03-31] MEDS: Multivit, Therapeutic 1 TAB PO SCH (08:39)
[2022-03-31] MEDS: Losartan 25 MG TAB PO SCH (08:39)
[2022-03-31] MEDS: Sodium Chloride 0.9% 1,000 ML IV SCH (08:40)
[2022-03-31] MEDS: Venlafaxine HCl XR 150 MG CAP PO SCH (08:40)
[2022-03-31] MEDS: Fluticasone Propionate Nasal Spray 16 gm Bottle NASAL SCH (08:40)
[2022-03-31] MEDS ORDERED: Acetaminophen/Codeine 30-300mg Tablet PO PRN (09:58)
[2022-03-31] MEDS ORDERED: HYDROcodone/Acetaminophen 7.5/325 mg Tablet PO PRN ×2 (09:58)
[2022-03-31] MEDS ORDERED: traMADol HCl 50 MG TAB PO PRN (09:59)
[2022-03-31] MEDS ORDERED: Diazepam 5 MG TAB PO PRN (10:00)
[2022-03-31] MEDS ORDERED: Diazepam 5 MG TAB PO SCH (10:00)
[2022-03-31] MEDS: Dexamethasone 4 MG TAB PO SCH ×2 (11:24→15:23)
[2022-03-31] MEDS ORDERED: hydrALAZINE 25 MG TAB PO SCH (15:00)
[2022-04-01] MEDS ORDERED: Hydrochlorothiazide 25 MG TAB PO SCH (09:00)
[2022-04-01] MEDS ORDERED: Dexamethasone 1 MG TAB PO SCH (10:00)
[2022-04-02] MEDS ORDERED: Dexamethasone 1 MG TAB PO SCH (10:00)
[2022-04-03] MEDS ORDERED: Dexamethasone 1 MG TAB PO SCH (10:00)
== END 2022-03-31 16:35 | DRG 454 ==
LOC: SURG A 03-27 06:00 → T4-B 03-27 14:52
PROVIDERS: ADMIT Surgery; ATTEND Surgery
PROC: 0RG20A0 Fusion of 2 or more Cervical Vertebral Joints with Interbody Fusion Device, Anterior Approach, Anterior Column, Open Approach (ICD-10-PCS; principal; 2022-03-28)
PROC: 0RG2071 Fusion of 2 or more Cervical Vertebral Joints with Autologous Tissue Substitute, Posterior Approach, Posterior Column, Open Approach (ICD-10-PCS; 2022-03-28)
PROC: 0RB30ZZ Excision of Cervical Vertebral Disc, Open Approach (ICD-10-PCS; 2022-03-28)
PROC: 01N10ZZ Release Cervical Nerve, Open Approach (ICD-10-PCS; 2022-03-28)
DX: M48.02 Spinal stenosis, cervical region (principal); M47.12 Other spondylosis with myelopathy, cervical region; M50.01 Cervical disc disorder with myelopathy, high cervical region; M50.11 Cervical disc disorder with radiculopathy, high cervical region; R13.10 Dysphagia, unspecified; I10 Essential (primary) hypertension; F17.210 Nicotine dependence, cigarettes, uncomplicated; I16.0 Hypertensive urgency; F32.A Depression, unspecified; N40.0 Benign prostatic hyperplasia without lower urinary tract symptoms; Z88.8 Allergy status to other drugs, medicaments and biological substances; Z79.899 Other long term (current) drug therapy; Z71.6 Tobacco abuse counseling
CPT/HCPCS: 36415; 70450; 71045; 76000; 80048; 80061; 80076; 81001; 83036; 83735; 83930; 84443; 85025; 85027; 85610; 85730; 86850; 86900; 86901; 87086; 93005; 93010; 93970; C1713; C1768; J0360; J0690; J1100; J1170; J2250; J2270; J2405; J2704; J3010; J3370; J3490; J7050; J8540; P9045

== ENCOUNTER 2022-03-24 11:22 | Outpatient (CLI) | payer MEDICARE | END 2022-03-24 11:23 | disposition home or self-care (01) | LOC: LABBT 11:22 | PROVIDERS: ATTEND Surgery | DX: Z01.818 Encounter for other preprocedural examination (principal); M50.00 Cervical disc disorder with myelopathy, unspecified cervical region; M47.12 Other spondylosis with myelopathy, cervical region; M48.02 Spinal stenosis, cervical region; S14.109A Unspecified injury at unspecified level of cervical spinal cord, initial encounter; Z20.822 Contact with and (suspected) exposure to COVID-19 | CPT/HCPCS: 93005; U0003; U0005; 93010 ==

== ENCOUNTER 2022-05-05 15:04 | Outpatient (CLI) | payer MEDICARE | END 2022-05-05 15:05 | disposition home or self-care (01) | LOC: BICRAD 15:04 | PROVIDERS: ATTEND Physician Assistant | DX: M48.02 Spinal stenosis, cervical region (principal); M50.10 Cervical disc disorder with radiculopathy, unspecified cervical region | CPT/HCPCS: 72040 ==

== ENCOUNTER 2022-07-03 15:40 | Outpatient (CLI) | payer BC, MEDICARE | END 2022-07-03 15:41 | disposition home or self-care (01) | LOC: BICRAD 15:40 | PROVIDERS: ATTEND Surgery | DX: M54.2 Cervicalgia (principal) | CPT/HCPCS: 72040 ==

== ENCOUNTER 2022-08-22 09:45 | Inpatient (IN) | payer BC, MEDICARE ==
[2022-08-22 11:37] LABS: Hemoglobin 15.1 g/dL (13.5-17.5); Mean Corpuscular HGB CONC 32.1 g/dL (32.0-36.0); Mean Corpuscular Hemoglobin 28.5 pg (27.0-33.0); Mean Corpuscular Volume 88.8 fl (81.2-95.1); Mean Platelet Volume 11.5 fl (7.4-10.4); Platelet Count 254 10x3/uL (150-450); RBC Distribution Width 13.3 % (11.5-14.5); Red Blood Cell (RBC) Count 5.29 10x6/uL (4.32-5.72); White Blood Cell (WBC) Count 9.8 10x3/uL (3.5-10.5)
[2022-08-22 12:07] LABS: INR-International Normal Ratio 0.9; PTT 27.9 sec (22.0-33.0); Prothrombin Time 10.3 sec (9.5-12.1)
[2022-08-22 12:26] LABS: Anion Gap 16 mmol/L (10-20); BUN (Urea Nitrogen) 28 mg/dL (8.4-25.7); Calc. Creatinine Clearance 0 mL/min (70-130); Calcium 9.7 mg/dL (7.8-10.44); Carbon Dioxide 25 mmol/L (23-31); Chloride 101 mmol/L (98-107); Estimated GFR 36; Glucose 67 mg/dL (80-115); Sodium 138 mmol/L (136-145)
[2022-08-26] MEDS ORDERED: Thrombin 5000 UNITS/5 ML VIAL ONE (06:17)
[2022-08-26] MEDS ORDERED: Bacitracin Zinc Ointment 30 gm TUBE ONE (06:24)
[2022-08-26] MEDS ORDERED: fentaNYL PF 100 MCG/2 ML SYRINGE ONE ×3 (07:15→13:10)
[2022-08-26] MEDS ORDERED: Sodium Chloride 0.9% 100 ML ONE (07:22)
[2022-08-26] MEDS ORDERED: CEFAZOLIN 2 GM VIAL ONE (07:22)
[2022-08-26] MEDS ORDERED: Esmolol 100 MG/10 ML VIAL ONE (07:43)
[2022-08-26] MEDS ORDERED: Ondansetron PF 4 MG/2 ML Vial ONE (07:43)
[2022-08-26] MEDS ORDERED: Rocuronium Bromide 10 MG/ML (10ML VIAL) ONE (07:43)
[2022-08-26] MEDS ORDERED: Vecuronium 10 MG VIAL ONE (07:43)
[2022-08-26] MEDS ORDERED: Dexamethasone 20 MG/5 ML VIAL ONE (07:43)
[2022-08-26] MEDS ORDERED: PROPOFOL 200 MG/20 ML VIAL ONE (07:43)
[2022-08-26 08:03] LABS: SARS-CoV-2 NAA Rapid Test Not Detected (NotDetected)
[2022-08-26] MEDS ORDERED: Acetaminophen 325 MG TAB PO PRN (08:24)
[2022-08-26] MEDS ORDERED: Ondansetron PF 4 MG/2 ML Vial IVP PRN (08:26)
[2022-08-26] MEDS ORDERED: HYDROcodone/Acetaminophen 7.5/325 mg Tablet PO PRN (08:26)
[2022-08-26] MEDS ORDERED: diphenhydrAMINE 25 MG CAP PO PRN (08:26)
[2022-08-26] MEDS ORDERED: hydrALAZINE 20 MG/ML VIAL SLOW IVP PRN (08:28)
[2022-08-26] MEDS ORDERED: Diazepam 5 MG TAB PO PRN (08:28)
[2022-08-26] MEDS ORDERED: traMADol HCl 50 MG TAB PO PRN (08:29)
[2022-08-26] MEDS ORDERED: Dexamethasone 4 mg/ml Vial ONE (08:31)
[2022-08-26] MEDS ORDERED: PACU-Morphine 4MG/ML VIAL SLOW IVP PRN (11:51)
[2022-08-26] MEDS ORDERED: Promethazine HCl 25 MG/ML VIAL IM PRN (11:51)
[2022-08-26] MEDS ORDERED: Ondansetron HCl/PF 4 MG/2 ML Vial IVP PRN (11:51)
[2022-08-26] MEDS ORDERED: HYDROmorphone 2 MG/ML VIAL SLOW IVP PRN (11:51)
[2022-08-26] MEDS ORDERED: Morphine Sulfate 2 MG/ML SYRINGE SLOW IVP PRN (11:51)
[2022-08-26] MEDS ORDERED: Promethazine HCl 25 MG/ML VIAL IVPB PRN (11:51)
[2022-08-26] MEDS ORDERED: SUGAMMADEX SODIUM 200 MG/2 ML VIAL ONE (12:24)
[2022-08-26] MEDS ORDERED: FENTANYL 50 MCG/ML 1 ML VIAL ONE (13:38)
[2022-08-26] MEDS: HYDROcodone/Acetaminophen 7.5/325 mg Tablet PO PRN ×3 (14:54→23:56)
[2022-08-26] MEDS ORDERED: CEFAZOLIN 2 GM in Sodium Chloride 0.9% 100 ML IVPB SCH (16:00)
[2022-08-26] MEDS: Hydrochlorothiazide 25 MG TAB PO SCH (17:34)
[2022-08-26] MEDS: Bupropion 150 MG XL TAB PO SCH (17:34)
[2022-08-26] MEDS: Loratadine 10 MG TAB PO SCH (17:34)
[2022-08-26] MEDS: Losartan 25 MG TAB PO SCH (17:34)
[2022-08-26] MEDS: Potassium Chloride 10 MEQ TAB PO SCH (17:35)
[2022-08-26] MEDS: Multivit, Therapeutic 1 TAB PO SCH (17:35)
[2022-08-26] MEDS: NIFEdipine XL 90 MG TAB PO SCH (17:35)
[2022-08-26] MEDS: Nebivolol HCl 5 MG TAB PO SCH (17:35)
[2022-08-26] MEDS: Venlafaxine HCl XR 150 MG CAP PO SCH (17:36)
[2022-08-26] MEDS: CEFAZOLIN 1 GM in Sodium Chloride 0.9% 100 ML IVPB SCH ×2 (17:51→23:56)
[2022-08-26] MEDS: Ketorolac Tromethamine 30 MG/ML VIAL IVP PRN (17:52)
[2022-08-26] MEDS: Sodium Chloride 0.9% 1,000 ML IV SCH ×2 (18:26→23:56)
[2022-08-26 19:41] VITALS: BMI 20.5
[2022-08-27] MEDS: Ketorolac Tromethamine 30 MG/ML VIAL IVP PRN (03:01)
[2022-08-27 05:35] LABS: #Eosinphils 0.1 thou/uL (0.0-0.7); #Lymphocytes 2.1 thou/uL (1.20-3.40); #Monocytes 1.6 thou/uL (0.11-0.59); #Neutrophils 11.7 thou/uL (1.40-6.50); %Basophils 0.1 % (0.0-1.0); %Eosinophils 0.3 % (0.0-10.0); %Lymphocytes 13.5 % (21.0-51.0); %Monocytes 10.1 % (0.0-10.0); %Neutrophils 75.9 % (42.0-75.0); Hemoglobin 14.2 g/dL (14.0-18.0); Mean Corpuscular HGB CONC 31.5 g/dL (32.0-36.0); Mean Corpuscular Hemoglobin 28.9 pg (27.0-31.0); Mean Corpuscular Volume 91.6 fl (78.0-98.0); Platelet Count 159 10x3/uL (130-400); RBC Distribution Width 12.5 % (11.5-14.5); Red Blood Cell (RBC) Count 4.91 mill/uL (4.70-6.10); White Blood Cell (WBC) Count 15.4 10x3/uL (4.8-10.8)
[2022-08-27 05:58] LABS: Anion Gap 14 mmol/L (10-20); BUN (Urea Nitrogen) 19 mg/dL (8.4-25.7); Calc. Creatinine Clearance 52 mL/min (70-130); Calcium 8.9 mg/dL (7.8-10.44); Carbon Dioxide 26 mmol/L (23-31); Chloride 103 mmol/L (98-107); Estimated GFR 67; Glucose 99 mg/dL (80-115); Potassium 3.8 mmol/L (3.5-5.1); Sodium 139 mmol/L (136-145)
[2022-08-27] MEDS: NIFEdipine XL 90 MG TAB PO SCH (08:30)
[2022-08-27] MEDS: Hydrochlorothiazide 25 MG TAB PO SCH (08:30)
[2022-08-27] MEDS: Losartan 25 MG TAB PO SCH (08:30)
[2022-08-27] MEDS: Bupropion 150 MG XL TAB PO SCH (08:30)
[2022-08-27] MEDS: Potassium Chloride 10 MEQ TAB PO SCH (08:30)
[2022-08-27] MEDS: CEFAZOLIN 1 GM in Sodium Chloride 0.9% 100 ML IVPB SCH ×3 (08:32→23:55)
[2022-08-27] MEDS: Nebivolol HCl 5 MG TAB PO SCH (08:32)
[2022-08-27] MEDS: Multivit, Therapeutic 1 TAB PO SCH (08:32)
[2022-08-27] MEDS: Venlafaxine HCl XR 150 MG CAP PO SCH (08:32)
[2022-08-27] MEDS: Loratadine 10 MG TAB PO SCH (08:32)
[2022-08-27] MEDS: HYDROcodone/Acetaminophen 7.5/325 mg Tablet PO PRN ×3 (10:10→19:55)
[2022-08-27] MEDS: Sodium Chloride 0.9% 1,000 ML IV SCH (10:44)
[2022-08-27] MEDS: Acetaminophen/Codeine 30-300mg Tablet PO PRN (12:21)
[2022-08-28] MEDS: Sodium Chloride 0.9% 1,000 ML IV SCH ×2 (03:17→18:35)
[2022-08-28] MEDS: HYDROcodone/Acetaminophen 7.5/325 mg Tablet PO PRN ×3 (04:01→18:34)
[2022-08-28] MEDS: Nebivolol HCl 5 MG TAB PO SCH (09:28)
[2022-08-28] MEDS: NIFEdipine XL 90 MG TAB PO SCH (09:28)
[2022-08-28] MEDS: Loratadine 10 MG TAB PO SCH (09:29)
[2022-08-28] MEDS: Potassium Chloride 10 MEQ TAB PO SCH (09:29)
[2022-08-28] MEDS: Bupropion 150 MG XL TAB PO SCH (09:29)
[2022-08-28] MEDS: Losartan 25 MG TAB PO SCH (09:29)
[2022-08-28] MEDS: Venlafaxine HCl XR 150 MG CAP PO SCH (09:30)
[2022-08-28] MEDS: Multivit, Therapeutic 1 TAB PO SCH (09:30)
[2022-08-28] MEDS: Hydrochlorothiazide 25 MG TAB PO SCH (09:30)
[2022-08-28] MEDS: CEFAZOLIN 1 GM in Sodium Chloride 0.9% 100 ML IVPB SCH ×2 (09:35→18:28)
[2022-08-28] MEDS: Acetaminophen/Codeine 30-300mg Tablet PO PRN (21:16)
[2022-08-29] MEDS: CEFAZOLIN 1 GM in Sodium Chloride 0.9% 100 ML IVPB SCH ×2 (00:47→09:05)
[2022-08-29] MEDS: HYDROcodone/Acetaminophen 7.5/325 mg Tablet PO PRN (03:24)
[2022-08-29] MEDS: Sodium Chloride 0.9% 1,000 ML IV SCH (04:10)
[2022-08-29] MEDS: FENTANYL 50 MCG/ML 1 ML VIAL SLOW IVP PRN ×2 (04:42→09:04)
[2022-08-29] MEDS: Losartan 25 MG TAB PO SCH (09:04)
[2022-08-29] MEDS: NIFEdipine XL 90 MG TAB PO SCH (09:05)
[2022-08-29] MEDS: Loratadine 10 MG TAB PO SCH (09:05)
[2022-08-29] MEDS: Hydrochlorothiazide 25 MG TAB PO SCH (09:05)
[2022-08-29] MEDS: Potassium Chloride 10 MEQ TAB PO SCH (09:05)
[2022-08-29] MEDS: Bupropion 150 MG XL TAB PO SCH (09:05)
[2022-08-29] MEDS: Venlafaxine HCl XR 150 MG CAP PO SCH (09:05)
[2022-08-29] MEDS: Multivit, Therapeutic 1 TAB PO SCH (09:05)
[2022-08-29] MEDS: Nebivolol HCl 5 MG TAB PO SCH (09:05)
[2022-08-29] MEDS ORDERED: Dexamethasone 10 MG/ML VIAL SLOW IVP SCH (10:45)
[2022-08-29 11:19] VITALS: BP 116/77; TEMP 98
== END 2022-08-29 13:40 | disposition home or self-care (01) | DRG 473 ==
LOC: SURG A 08-26 06:12
PROVIDERS: ADMIT Surgery; ATTEND Surgery
PROC: 0RG4071 Fusion of Cervicothoracic Vertebral Joint with Autologous Tissue Substitute, Posterior Approach, Posterior Column, Open Approach (ICD-10-PCS; principal; 2022-08-26)
PROC: 0PP304Z Removal of Internal Fixation Device from Cervical Vertebra, Open Approach (ICD-10-PCS; 2022-08-26)
PROC: 01N10ZZ Release Cervical Nerve, Open Approach (ICD-10-PCS; 2022-08-26)
PROC: 01N80ZZ Release Thoracic Nerve, Open Approach (ICD-10-PCS; 2022-08-26)
PROC: 0RB30ZZ Excision of Cervical Vertebral Disc, Open Approach (ICD-10-PCS; 2022-08-26)
DX: M48.02 Spinal stenosis, cervical region (principal); M50.20 Other cervical disc displacement, unspecified cervical region; Z20.822 Contact with and (suspected) exposure to COVID-19; M96.1 Postlaminectomy syndrome, not elsewhere classified; M50.13 Cervical disc disorder with radiculopathy, cervicothoracic region; E29.1 Testicular hypofunction; F32.A Depression, unspecified; G47.00 Insomnia, unspecified; F17.210 Nicotine dependence, cigarettes, uncomplicated; I10 Essential (primary) hypertension; J44.9 Chronic obstructive pulmonary disease, unspecified; N40.0 Benign prostatic hyperplasia without lower urinary tract symptoms; M10.9 Gout, unspecified; Z79.899 Other long term (current) drug therapy; Z79.890 Hormone replacement therapy; Z98.890 Other specified postprocedural states; Z88.8 Allergy status to other drugs, medicaments and biological substances
CPT/HCPCS: 36415; 36416; 80048; 85025; 85027; 85610; 85730; 86850; 86900; 86901; 93005; 93010; 93970; C1713; C1768; C1776; J0690; J1100; J1885; J2405; J2704; J3010; J3370; J3490; J7050; U0002

== ENCOUNTER 2022-08-22 09:54 | Outpatient (CLI) | payer BC, MEDICARE | END 2022-08-22 09:55 | disposition home or self-care (01) | LOC: LABBT 09:54 | PROVIDERS: ATTEND Surgery | DX: Z01.818 Encounter for other preprocedural examination (principal); M48.02 Spinal stenosis, cervical region; M54.12 Radiculopathy, cervical region; M50.20 Other cervical disc displacement, unspecified cervical region | CPT/HCPCS: 93005; 93010 ==

== ENCOUNTER 2022-09-30 14:35 | Outpatient (CLI) | payer BC | END 2022-09-30 14:36 | disposition home or self-care (01) | LOC: RAD 14:35 | PROVIDERS: ATTEND Surgery | DX: M50.20 Other cervical disc displacement, unspecified cervical region (principal); Z98.890 Other specified postprocedural states | CPT/HCPCS: 72040 ==

== ENCOUNTER 2022-12-17 13:17 | Outpatient (CLI) | payer MEDICARE | END 2022-12-17 13:18 | disposition home or self-care (01) | LOC: BICCT 13:17 | PROVIDERS: ATTEND Internal Medicine | DX: R63.4 Abnormal weight loss (principal); Z72.0 Tobacco use | CPT/HCPCS: 71260; 82565; Q9967 ==

== ENCOUNTER 2023-05-06 10:09 | Outpatient (CLI) | payer MEDICARE | END 2023-05-06 10:10 | disposition home or self-care (01) | LOC: RAD 10:09 | PROVIDERS: ATTEND Internal Medicine | DX: R13.10 Dysphagia, unspecified (principal); R63.4 Abnormal weight loss | CPT/HCPCS: 74230 ==

== ENCOUNTER 2023-05-07 21:23 | Emergency (ER) | payer MEDICARE ==
[~2023-05-07 21:23] MED LIST changes: -Iopamidol-370 76% 500 ML 1 ML ONE; +Iopamidol-370 76% 500 ML MDV (1 ML CHARGE) ONE
[2023-05-07] MEDS ORDERED: Ondansetron PF 4 MG/2 ML Vial ONE (22:14)
[2023-05-07 22:18] LABS: #Basophils 0.1 thou/uL (0.0-0.2); #Eosinphils 0.2 thou/uL (0.0-0.7); #Monocytes 0.6 thou/uL (0.11-0.59); #Neutrophils 7.2 thou/uL (1.40-6.50); %Basophils 0.6 % (0.0-1.0); %Eosinophils 2.1 % (0.0-10.0); %Lymphocytes 19.7 % (21.0-51.0); %Monocytes 6.3 % (0.0-10.0); %Neutrophils 70.9 % (42.0-75.0); Hemoglobin 14.8 g/dL (14.0-18.0); Mean Corpuscular HGB CONC 32.3 g/dL (32.0-36.0); Mean Corpuscular Hemoglobin 28.8 pg (27.0-31.0); Mean Corpuscular Volume 89.1 fl (78.0-98.0); Mean Platelet Volume 11.3 fL (7.4-10.4); Platelet Count 203 10x3/uL (130-400); RBC Distribution Width 14.6 % (11.5-14.5); Red Blood Cell (RBC) Count 5.14 mill/uL (4.70-6.10); White Blood Cell (WBC) Count 10.2 10x3/uL (4.8-10.8)
[2023-05-07 22:27] LABS: Bilirubin Small (Negative); Blood, Urine Negative (Negative); Glucose, Urine (Dipstick) 100 mg/dL (Negative); Ketone, Urine Trace mg/dL (Negative); Leukocyte Negative (Negative); Nitrite Negative (Negative); Protein, Urine (Dipstick) Negative (Neg-Trace); Specific Gravity, Urine 1.025 (1.005-1.030); Urobilinogen 0.2 mg/dL (Less than 2)
[2023-05-07 22:28] LABS: Clarity Clear (Clear)
[2023-05-07 22:35] LABS: Bacteria/HPF Rare-Few HPF (None Seen); CAUTI Indications for Culture Dysuria,urgency,freq; Other Microscopic Description Less than 2 mL rec'd; RBC/HPF None Seen HPF (0-3); Squamous Epithelial None Seen HPF (0-3); WBC/HPF None Seen HPF (0-3)
[2023-05-07 22:36] LABS: Urine Culture Reflex No No
[2023-05-07 22:40] LABS: ALT (SGPT) 19 U/L (8-55); AST (SGOT) 17 U/L (5-34); Alkaline Phosphatase 66 U/L (40-110); Anion Gap 14 mmol/L (10-20); BUN (Urea Nitrogen) 22 mg/dL (8.4-25.7); Bilirubin, Total 0.7 mg/dL (0.2-1.2); Calc. Creatinine Clearance 0 mL/min (70-130); Calcium 9.6 mg/dL (7.8-10.44); Carbon Dioxide 27 mmol/L (23-31); Chloride 104 mmol/L (98-107); Estimated GFR 48; Globulin 3.4 g/dL (2.4-3.5); Glucose 92 mg/dL (80-115); Lipase 59 U/L (8-78); Potassium 4.4 mmol/L (3.5-5.1); Protein, Total 7.4 g/dL (5.8-8.1); Sodium 141 mmol/L (136-145)
[2023-05-07] MEDS ORDERED: Amoxicillin/Potassium Clav 875 MG TAB ONE (23:46)
== END 2023-05-08 00:10 | disposition home or self-care (01) ==
LOC: ERS 21:23
DX: K57.32 Diverticulitis of large intestine without perforation or abscess without bleeding (principal); I10 Essential (primary) hypertension; F17.210 Nicotine dependence, cigarettes, uncomplicated
CPT/HCPCS: 36415; 74177; 80053; 81001; 83690; 85025; 96361; 96374; J2405; Q9967

== ENCOUNTER 2023-05-08 21:57 | Inpatient (IN) | payer BC, MEDICARE ==
[2023-05-08] MEDS ORDERED: metroNIDAZOLE 500 MG/100 ML BAG ONE (22:37)
[2023-05-08] MEDS ORDERED: Ondansetron PF 4 MG/2 ML Vial ONE (22:37)
[2023-05-08] MEDS ORDERED: Ketorolac Tromethamine 30 MG/ML VIAL ONE (22:37)
[2023-05-08 22:58] LABS: #Monocytes 0.8 thou/uL (0.11-0.59); #Neutrophils 7.7 thou/uL (1.40-6.50); %Basophils 0.2 % (0.0-1.0); %Eosinophils 0.4 % (0.0-10.0); %Lymphocytes 13.9 % (21.0-51.0); %Monocytes 7.9 % (0.0-10.0); %Neutrophils 77.4 % (42.0-75.0); Hematocrit 43.9 % (42.0-52.0); Hemoglobin 14.4 g/dL (14.0-18.0); Mean Corpuscular HGB CONC 32.8 g/dL (32.0-36.0); Mean Corpuscular Hemoglobin 28.7 pg (27.0-31.0); Mean Corpuscular Volume 87.6 fl (78.0-98.0); Mean Platelet Volume 11.7 fL (7.4-10.4); Platelet Count 203 10x3/uL (130-400); RBC Distribution Width 14.5 % (11.5-14.5); Red Blood Cell (RBC) Count 5.01 mill/uL (4.70-6.10); White Blood Cell (WBC) Count 9.9 10x3/uL (4.8-10.8)
[2023-05-08 23:20] LABS: ALT (SGPT) 20 U/L (8-55); AST (SGOT) 23 U/L (5-34); Alkaline Phosphatase 60 U/L (40-110); Anion Gap 15 mmol/L (10-20); BUN (Urea Nitrogen) 27 mg/dL (8.4-25.7); Bilirubin, Total 0.8 mg/dL (0.2-1.2); Calc. Creatinine Clearance 0 mL/min (70-130); Calcium 9.6 mg/dL (7.8-10.44); Carbon Dioxide 20 mmol/L (23-31); Chloride 106 mmol/L (98-107); Estimated GFR 44; Globulin 3.6 g/dL (2.4-3.5); Glucose 80 mg/dL (80-115); Potassium 4.4 mmol/L (3.5-5.1); Protein, Total 7.6 g/dL (5.8-8.1); Sodium 137 mmol/L (136-145)
[2023-05-08] MEDS ORDERED: Sodium Chloride 0.9% 1,000 ML IV SCH (23:45)
[2023-05-08] MEDS ORDERED: Acetaminophen 325 MG TAB PO PRN (23:45)
[2023-05-08] MEDS ORDERED: Ondansetron ODT 4 MG TAB SL PRN (23:45)
[2023-05-08] MEDS ORDERED: Ondansetron PF 4 MG/2 ML Vial IVP PRN ×2 (23:45→23:52)
[2023-05-08] MEDS: Sodium Chloride 0.9% 1,000 ML IV SCH (23:56)
[2023-05-09] MEDS: Nicotine 14 MG PATCH TD SCH (01:01)
[2023-05-09] MEDS: metroNIDAZOLE 500 MG in Premix Bag 1 BAG IVPB SCH ×3 (04:49→23:13)
[2023-05-09 05:49] LABS: #Eosinphils 0.2 thou/uL (0.0-0.7); #Monocytes 0.9 thou/uL (0.11-0.59); #Neutrophils 7.3 thou/uL (1.40-6.50); %Basophils 0.4 % (0.0-1.0); %Eosinophils 2.2 % (0.0-10.0); %Lymphocytes 17.9 % (21.0-51.0); %Monocytes 8.4 % (0.0-10.0); %Neutrophils 70.7 % (42.0-75.0); Hematocrit 42.7 % (42.0-52.0); Hemoglobin 13.8 g/dL (14.0-18.0); Mean Corpuscular HGB CONC 32.3 g/dL (32.0-36.0); Mean Corpuscular Hemoglobin 28.8 pg (27.0-31.0); Mean Corpuscular Volume 89.1 fl (78.0-98.0); Mean Platelet Volume 11.6 fL (7.4-10.4); Platelet Count 194 10x3/uL (130-400); RBC Distribution Width 14.4 % (11.5-14.5); Red Blood Cell (RBC) Count 4.79 mill/uL (4.70-6.10); White Blood Cell (WBC) Count 10.3 10x3/uL (4.8-10.8)
[2023-05-09 07:25] LABS: Albumin 3.9 g/dL (3.4-4.8)
[2023-05-09 07:26] LABS: Chloride 105 mmol/L (98-107); Potassium 3.6 mmol/L (3.5-5.1); Sodium 140 mmol/L (136-145)
[2023-05-09 07:27] LABS: Calcium 8.9 mg/dL (7.8-10.44)
[2023-05-09 07:28] LABS: Globulin 3.2 g/dL (2.4-3.5); Glucose 86 mg/dL (80-115); Protein, Total 7.1 g/dL (5.8-8.1)
[2023-05-09 07:29] LABS: Anion Gap 16 mmol/L (10-20); Carbon Dioxide 23 mmol/L (23-31)
[2023-05-09 07:30] LABS: Bilirubin, Total 0.6 mg/dL (0.2-1.2)
[2023-05-09 07:31] LABS: Alkaline Phosphatase 57 U/L (40-110); Calc. Creatinine Clearance 33 mL/min (70-130); Estimated GFR 42
[2023-05-09 07:32] LABS: BUN (Urea Nitrogen) 30 mg/dL (8.4-25.7)
[2023-05-09 07:33] LABS: AST (SGOT) 20 U/L (5-34)
[2023-05-09 07:34] LABS: ALT (SGPT) 20 U/L (8-55)
[2023-05-09] MEDS: Sodium Chloride 0.9% 1,000 ML IV SCH ×3 (09:20→20:17)
[2023-05-09] MEDS: Amlodipine 5 MG TAB PO SCH (09:27)
[2023-05-09] MEDS: Carvedilol 3.125 MG TAB PO SCH ×2 (09:27→16:36)
[2023-05-09 10:44] VITALS: BMI 18.8
[2023-05-09] MEDS ORDERED: Loperamide HCl 2 MG CAP PO PRN ×2 (23:14)
[2023-05-10] MEDS: Nicotine 14 MG PATCH TD SCH ×2 (01:03→20:10)
[2023-05-10] MEDS: Sodium Chloride 0.9% 1,000 ML IV SCH ×2 (04:53→08:51)
[2023-05-10 06:38] LABS: #Eosinphils 0.3 thou/uL (0.0-0.7); #Monocytes 0.7 thou/uL (0.11-0.59); #Neutrophils 4.9 thou/uL (1.40-6.50); %Basophils 0.5 % (0.0-1.0); %Eosinophils 3.5 % (0.0-10.0); %Lymphocytes 24.8 % (21.0-51.0); %Monocytes 8.5 % (0.0-10.0); %Neutrophils 62.4 % (42.0-75.0); Hemoglobin 12.6 g/dL (14.0-18.0); Mean Corpuscular HGB CONC 32.3 g/dL (32.0-36.0); Mean Corpuscular Hemoglobin 28.8 pg (27.0-31.0); Mean Corpuscular Volume 89.2 fl (78.0-98.0); Mean Platelet Volume 11.7 fL (7.4-10.4); Platelet Count 180 10x3/uL (130-400); RBC Distribution Width 14.1 % (11.5-14.5); Red Blood Cell (RBC) Count 4.37 mill/uL (4.70-6.10); White Blood Cell (WBC) Count 7.9 10x3/uL (4.8-10.8)
[2023-05-10 07:15] LABS: Anion Gap 11 mmol/L (10-20); BUN (Urea Nitrogen) 20 mg/dL (8.4-25.7); Calc. Creatinine Clearance 50 mL/min (70-130); Calcium 8.2 mg/dL (7.8-10.44); Carbon Dioxide 21 mmol/L (23-31); Chloride 108 mmol/L (98-107); Estimated GFR 68; Glucose 81 mg/dL (80-115); Potassium 3.5 mmol/L (3.5-5.1); Sodium 136 mmol/L (136-145)
[2023-05-10] MEDS: metroNIDAZOLE 500 MG in Premix Bag 1 BAG IVPB SCH ×3 (07:15→22:21)
[2023-05-10] MEDS: Carvedilol 3.125 MG TAB PO SCH ×2 (08:52→17:47)
[2023-05-10] MEDS: Amlodipine 5 MG TAB PO SCH (08:52)
[2023-05-10] MEDS ORDERED: Acetaminophen 325 MG TAB PO PRN (13:53)
[2023-05-11] MEDS: metroNIDAZOLE 500 MG in Premix Bag 1 BAG IVPB SCH ×2 (06:09→14:16)
[2023-05-11 07:29] LABS: #Eosinphils 0.3 thou/uL (0.0-0.7); #Monocytes 0.7 thou/uL (0.11-0.59); %Basophils 0.5 % (0.0-1.0); %Eosinophils 4.4 % (0.0-10.0); %Lymphocytes 22.2 % (21.0-51.0); %Monocytes 8.5 % (0.0-10.0); Hemoglobin 13.1 g/dL (14.0-18.0); Mean Corpuscular HGB CONC 32.8 g/dL (32.0-36.0); Mean Corpuscular Hemoglobin 28.7 pg (27.0-31.0); Mean Corpuscular Volume 87.7 fl (78.0-98.0); Mean Platelet Volume 11.2 fL (7.4-10.4); Platelet Count 184 10x3/uL (130-400); RBC Distribution Width 14.1 % (11.5-14.5); Red Blood Cell (RBC) Count 4.56 mill/uL (4.70-6.10); White Blood Cell (WBC) Count 7.7 10x3/uL (4.8-10.8)
[2023-05-11 07:55] LABS: Anion Gap 10 mmol/L (10-20); BUN (Urea Nitrogen) 15 mg/dL (8.4-25.7); Calc. Creatinine Clearance 58 mL/min (70-130); Calcium 8.3 mg/dL (7.8-10.44); Carbon Dioxide 19 mmol/L (23-31); Chloride 110 mmol/L (98-107); Estimated GFR 81; Glucose 72 mg/dL (80-115); Sodium 135 mmol/L (136-145)
[2023-05-11 07:56] VITALS: TEMP 98
[2023-05-11] MEDS: Amlodipine 5 MG TAB PO SCH (08:10)
[2023-05-11] MEDS: Carvedilol 3.125 MG TAB PO SCH (08:11)
[2023-05-11 13:02] VITALS: BP 181/94
== END 2023-05-11 14:35 | disposition home or self-care (01) | DRG 392 ==
LOC: ERS 21:57 → T4-B 22:49 → OBSVTOIN 05-10 16:22
PROVIDERS: ADMIT Internal Medicine Nephrology; ATTEND Internal Medicine Nephrology
DX: K57.32 Diverticulitis of large intestine without perforation or abscess without bleeding (principal); E87.20 Acidosis, unspecified; N17.9 Acute kidney failure, unspecified; I50.32 Chronic diastolic (congestive) heart failure; I11.0 Hypertensive heart disease with heart failure; N40.0 Benign prostatic hyperplasia without lower urinary tract symptoms; F17.210 Nicotine dependence, cigarettes, uncomplicated; D72.829 Elevated white blood cell count, unspecified; R13.10 Dysphagia, unspecified; Z88.8 Allergy status to other drugs, medicaments and biological substances; Z79.899 Other long term (current) drug therapy; Z98.1 Arthrodesis status; Z80.8 Family history of malignant neoplasm of other organs or systems; Z80.6 Family history of leukemia
CPT/HCPCS: 36415; 71045; 74177; 80048; 80053; 81001; 83605; 83630; 83690; 85025; 87324; 87449; 93005; 96361; 96365; 96367; 96374; 96375; 96376; G0378; J0744; J1885; J2405; J7050; Q9967

== ENCOUNTER 2023-06-08 08:54 | Emergency (ER) | payer MEDICARE ==
[2023-06-08] MEDS ORDERED: Morphine 4 MG/ML VIAL ONE ×2 (09:22→11:25)
[2023-06-08 09:30] LABS: #Eosinphils 0.4 thou/uL (0.0-0.7); #Monocytes 0.7 thou/uL (0.11-0.59); #Neutrophils 4.8 thou/uL (1.40-6.50); %Basophils 0.5 % (0.0-1.0); %Lymphocytes 27.8 % (21.0-51.0); %Monocytes 8.1 % (0.0-10.0); %Neutrophils 58.4 % (42.0-75.0); Hematocrit 44.7 % (42.0-52.0); Hemoglobin 14.6 g/dL (14.0-18.0); Mean Corpuscular HGB CONC 32.7 g/dL (32.0-36.0); Mean Corpuscular Hemoglobin 28.8 pg (27.0-31.0); Mean Corpuscular Volume 88.2 fl (78.0-98.0); Mean Platelet Volume 12.5 fL (7.4-10.4); Platelet Count 151 10x3/uL (130-400); RBC Distribution Width 13.9 % (11.5-14.5); Red Blood Cell (RBC) Count 5.07 mill/uL (4.70-6.10); White Blood Cell (WBC) Count 8.3 10x3/uL (4.8-10.8)
[2023-06-08 09:46] LABS: ALT (SGPT) 20 U/L (8-55); AST (SGOT) 23 U/L (5-34); Alkaline Phosphatase 63 U/L (40-110); Anion Gap 16 mmol/L (10-20); BUN (Urea Nitrogen) 22 mg/dL (8.4-25.7); Bilirubin, Total 0.3 mg/dL (0.2-1.2); Calc. Creatinine Clearance 0 mL/min (70-130); Calcium 10.3 mg/dL (7.8-10.44); Carbon Dioxide 27 mmol/L (23-31); Chloride 102 mmol/L (98-107); Estimated GFR 58; Globulin 3.4 g/dL (2.4-3.5); Glucose 97 mg/dL (80-115); Lipase 87 U/L (8-78); Potassium 4.5 mmol/L (3.5-5.1); Protein, Total 7.4 g/dL (5.8-8.1); Sodium 140 mmol/L (136-145)
[2023-06-08 09:51] LABS: Troponin I Less than 0.010 ng/mL (< 0.028)
[2023-06-08] MEDS ORDERED: LevoFLOXacin 500 mg/D5W 100 ML BAG ONE (11:45)
[2023-06-08] MEDS ORDERED: Ketorolac Tromethamine 30 MG/ML VIAL ONE (13:17)
[2023-06-08] MEDS ORDERED: Iopamidol-370 76% 500 ML MDV (1 ML CHARGE) ONE (14:21)
[2023-06-08] MEDS ORDERED: fentaNYL 50 mcg/mL 1 mL Vial ONE (14:32)
[2023-06-08] MEDS ORDERED: fentaNYL PF 100 MCG/2 ML SYRINGE ONE (14:32)
[2023-06-08] MEDS ORDERED: Glucagon 1 MG/ML KIT ONE (14:33)
[2023-06-08] MEDS ORDERED: EPINEPHrine 1 MG/ML AMP ONE (14:33)
[2023-06-08] MEDS ORDERED: Bupivacaine PF 0.5% 30 ML VIAL ONE (14:33)
[2023-06-08] MEDS ORDERED: Iopamidol 15 ML ONE (14:33)
[2023-06-08] MEDS ORDERED: NEOSTIGMINE 3 MG/3 ML SYR 3 MG/3 ML SYRINGE ONE (14:51)
[2023-06-08] MEDS ORDERED: Glycopyrrolate 0.2 MG/ML 5 ML SYRINGE ONE (14:51)
[2023-06-08] MEDS ORDERED: Rocuronium Bromide 10 MG/ML (10ML VIAL) ONE (14:51)
[2023-06-08] MEDS ORDERED: PHENYLEPHRINE-NS 100 MCG/ML 10 ML SYRINGE ONE (14:51)
[2023-06-08] MEDS ORDERED: Lidocaine 1% PF 5 ML VIAL ONE (14:51)
[2023-06-08] MEDS ORDERED: Dexamethasone 20 MG/5 ML VIAL ONE (14:51)
[2023-06-08] MEDS ORDERED: PROPOFOL 200 MG/20 ML VIAL ONE (14:51)
[2023-06-08] MEDS ORDERED: Ondansetron PF 4 MG/2 ML Vial ONE (14:51)
== END 2023-06-08 14:16 | disposition admitted as inpatient to this hospital (09) ==
LOC: ERS 08:54
PROC: 0FT44ZZ Resection of Gallbladder, Percutaneous Endoscopic Approach (ICD-10-PCS; principal; 2023-06-08)
PROC: BF532Z0 Other Imaging of Gallbladder and Bile Ducts using Fluorescing Agent, Intraoperative (ICD-10-PCS; 2023-06-08)
DX: K80.12 Calculus of gallbladder with acute and chronic cholecystitis without obstruction (principal); K82.1 Hydrops of gallbladder; R16.0 Hepatomegaly, not elsewhere classified; I10 Essential (primary) hypertension; N32.0 Bladder-neck obstruction; F17.210 Nicotine dependence, cigarettes, uncomplicated; Z88.8 Allergy status to other drugs, medicaments and biological substances; Z98.890 Other specified postprocedural states; Z79.899 Other long term (current) drug therapy
CPT/HCPCS: 47532; 47563; 74177; 76705; 80053; 83605; 83690; 84484; 85025; 93005; C1889 ×2; J1611; J3010; 36415; 88304; 96361; 96365; 96375; 96376; J0171; J1100; J1885; J1956; J2270; J2405; J2704; Q9967; S0020

== ENCOUNTER 2023-08-07 19:26 | Emergency (ER) | payer BC, MEDICARE ==
[2023-08-07 20:18] LABS: #Eosinphils 0.1 thou/uL (0.0-0.7); #Monocytes 0.8 thou/uL (0.11-0.59); #Neutrophils 9.4 thou/uL (1.40-6.50); %Basophils 0.3 % (0.0-1.0); %Eosinophils 1.1 % (0.0-10.0); %Lymphocytes 12.6 % (21.0-51.0); %Monocytes 6.8 % (0.0-10.0); %Neutrophils 78.9 % (42.0-75.0); Hematocrit 46.3 % (42.0-52.0); Mean Corpuscular HGB CONC 32.4 g/dL (32.0-36.0); Mean Corpuscular Hemoglobin 28.4 pg (27.0-31.0); Mean Corpuscular Volume 87.7 fl (78.0-98.0); Mean Platelet Volume 12.1 fL (7.4-10.4); Platelet Count 163 10x3/uL (130-400); RBC Distribution Width 13.7 % (11.5-14.5); Red Blood Cell (RBC) Count 5.28 mill/uL (4.70-6.10); White Blood Cell (WBC) Count 11.9 10x3/uL (4.8-10.8)
[2023-08-07 20:46] LABS: ALT (SGPT) 27 U/L (8-55); AST (SGOT) 21 U/L (5-34); Albumin 4.8 g/dL (3.4-4.8); Alkaline Phosphatase 79 U/L (40-110); Anion Gap 15 mmol/L (10-20); BUN (Urea Nitrogen) 26 mg/dL (8.4-25.7); Bilirubin, Total 0.3 mg/dL (0.2-1.2); Calc. Creatinine Clearance 0 mL/min (70-130); Calcium 10.1 mg/dL (7.8-10.44); Carbon Dioxide 27 mmol/L (23-31); Chloride 100 mmol/L (98-107); Estimated GFR 68; Glucose 79 mg/dL (80-115); Lipase 67 U/L (8-78); Protein, Total 7.8 g/dL (5.8-8.1); Sodium 138 mmol/L (136-145)
[2023-08-07] MEDS ORDERED: Ketorolac Tromethamine 30 MG/ML VIAL ONE (20:47)
[2023-08-07 21:04] LABS: Bacteria/HPF None Seen HPF (None Seen); Bilirubin Negative (Negative); Blood, Urine Negative (Negative); CAUTI Indications for Culture Pelvic or flank pain; Clarity Clear (Clear); Glucose, Urine (Dipstick) Normal (Negative); Ketone, Urine Negative (Negative); Leukocyte Negative Leu/uL (Negative); Nitrite Negative (Negative); Protein, Urine (Dipstick) Negative (Neg-Trace); RBC/HPF 0-3 HPF (0-3); Specific Gravity, Urine 1.019 (1.002-1.036); Squamous Epithelial None Seen HPF (0-3); Urobilinogen Normal mg/dL (Less than 2); WBC/HPF 0-3 HPF (0-3)
[2023-08-07 21:10] LABS: Urine Culture Reflex No No
== END 2023-08-07 22:48 | disposition home or self-care (01) ==
LOC: ERS 19:26
DX: K57.92 Diverticulitis of intestine, part unspecified, without perforation or abscess without bleeding (principal); I10 Essential (primary) hypertension; F17.210 Nicotine dependence, cigarettes, uncomplicated
CPT/HCPCS: 36415; 74177; 80053; 81001; 83690; 85025; 96374; J1885

== ENCOUNTER 2023-08-09 21:57 | Inpatient (IN) | payer MEDICARE ==
[~2023-08-09 21:57] MED LIST changes: +Iopamidol 370 76% 100 ML VIAL ONE; -Iopamidol-370 76% 500 ML MDV (1 ML CHARGE) ONE
[2023-08-09 23:44] LABS: #Eosinphils 0.3 thou/uL (0.0-0.7); #Neutrophils 9.1 thou/uL (1.40-6.50); %Basophils 0.2 % (0.0-1.0); %Eosinophils 2.5 % (0.0-10.0); %Lymphocytes 13.6 % (21.0-51.0); %Neutrophils 75.5 % (42.0-75.0); Hematocrit 41.6 % (42.0-52.0); Hemoglobin 13.8 g/dL (14.0-18.0); Mean Corpuscular HGB CONC 33.2 g/dL (32.0-36.0); Mean Corpuscular Hemoglobin 28.5 pg (27.0-31.0); Mean Corpuscular Volume 85.8 fl (78.0-98.0); Mean Platelet Volume 12.5 fL (7.4-10.4); Platelet Count 143 10x3/uL (130-400); RBC Distribution Width 13.4 % (11.5-14.5); Red Blood Cell (RBC) Count 4.85 mill/uL (4.70-6.10); White Blood Cell (WBC) Count 12.1 10x3/uL (4.8-10.8)
[2023-08-09] MEDS ORDERED: Morphine 4 MG/ML VIAL ONE (23:50)
[2023-08-09] MEDS ORDERED: Ondansetron PF 4 MG/2 ML Vial ONE (23:50)
[2023-08-10 00:12] LABS: CRP (Inflammatory) 2.59 mg/dL (= or < 0.5)
[2023-08-10 00:13] LABS: ALT (SGPT) 25 U/L (8-55); AST (SGOT) 23 U/L (5-34); Albumin 4.3 g/dL (3.4-4.8); Alkaline Phosphatase 68 U/L (40-110); Anion Gap 18 mmol/L (10-20); BUN (Urea Nitrogen) 32 mg/dL (8.4-25.7); Bilirubin, Total 0.6 mg/dL (0.2-1.2); Calc. Creatinine Clearance 0 mL/min (70-130); Calcium 9.2 mg/dL (7.8-10.44); Carbon Dioxide 21 mmol/L (23-31); Chloride 101 mmol/L (98-107); Estimated GFR 71; Globulin 2.5 g/dL (2.4-3.5); Glucose 81 mg/dL (80-115); Potassium 4.1 mmol/L (3.5-5.1); Protein, Total 6.8 g/dL (5.8-8.1); Sodium 136 mmol/L (136-145)
[2023-08-10 00:31] LABS: Bacteria/HPF None Seen HPF (None Seen); Bilirubin Negative (Negative); Blood, Urine Negative (Negative); CAUTI Indications for Culture Dysuria,urgency,freq; Clarity Clear (Clear); Glucose, Urine (Dipstick) Normal (Negative); Ketone, Urine Negative (Negative); Leukocyte 25 Leu/uL (Negative); Nitrite Negative (Negative); Protein, Urine (Dipstick) Negative (Neg-Trace); RBC/HPF 0-3 HPF (0-3); Specific Gravity, Urine 1.029 (1.002-1.036); Squamous Epithelial None Seen HPF (0-3); Urobilinogen Normal mg/dL (Less than 2); WBC/HPF 0-3 HPF (0-3); pH, Urine 5.5 (5.0-9.0)
[2023-08-10 00:43] LABS: Urine Culture Reflex No No
[2023-08-10] MEDS ORDERED: Piperacillin/Tazobactam 4.5 GM VIAL ONE (00:59)
[2023-08-10] MEDS ORDERED: Benzonatate 100 MG CAP ONE (01:10)
[2023-08-10] MEDS ORDERED: Morphine 4 MG/ML VIAL ONE (01:11)
[2023-08-10 05:53] LABS: SARS-CoV-2 NAA Rapid Test Not Detected (NotDetected)
[2023-08-10 06:08] VITALS: BMI 20.9
[2023-08-10] MEDS ORDERED: Ondansetron PF 4 MG/2 ML Vial IVP PRN (07:19)
[2023-08-10] MEDS ORDERED: Ondansetron ODT 4 MG TAB SL PRN (07:19)
[2023-08-10] MEDS ORDERED: Morphine 4 MG/ML VIAL SLOW IVP PRN (08:11)
[2023-08-10] MEDS ORDERED: Lactated Ringer's 1,000 ML IV SCH (08:15)
[2023-08-10] MEDS ORDERED: Senokot S 8.6-50 MG TAB PO PRN (08:32)
[2023-08-10] MEDS: Metoprolol Tartrate 25 MG TAB PO SCH (09:36)
[2023-08-10] MEDS: Acetaminophen 500 MG TAB PO SCH ×3 (09:36→20:37)
[2023-08-10] MEDS: Hydrochlorothiazide 25 MG TAB PO SCH (09:36)
[2023-08-10] MEDS: Losartan 25 MG TAB PO SCH (09:37)
[2023-08-10] MEDS: NIFEdipine XL 90 MG ER.TAB PO SCH (09:41)
[2023-08-10] MEDS ORDERED: Benzonatate 100 MG CAP PO PRN (12:22)
[2023-08-10] MEDS: oxyCODONE 5 MG TAB PO PRN (14:40)
[2023-08-10] MEDS: Piperacillin/Tazobactam 3.375 GM in Sodium Chloride 0.9% 100 ML IVPB SCH ×2 (14:41→21:57)
[2023-08-11] MEDS: oxyCODONE 5 MG TAB PO PRN (03:33)
[2023-08-11] MEDS: Piperacillin/Tazobactam 3.375 GM in Sodium Chloride 0.9% 100 ML IVPB SCH ×3 (05:28→21:14)
[2023-08-11 06:43] LABS: #Eosinphils 0.1 thou/uL (0.0-0.7); #Monocytes 0.5 thou/uL (0.11-0.59); #Neutrophils 5.3 thou/uL (1.40-6.50); %Basophils 0.3 % (0.0-1.0); %Eosinophils 1.1 % (0.0-10.0); %Lymphocytes 8.4 % (21.0-51.0); %Monocytes 7.3 % (0.0-10.0); %Neutrophils 82.6 % (42.0-75.0); Hematocrit 41.8 % (42.0-52.0); Hemoglobin 13.7 g/dL (14.0-18.0); Mean Corpuscular HGB CONC 32.8 g/dL (32.0-36.0); Mean Corpuscular Hemoglobin 28.6 pg (27.0-31.0); Mean Corpuscular Volume 87.3 fl (78.0-98.0); Mean Platelet Volume 12.6 fL (7.4-10.4); Platelet Count 139 10x3/uL (130-400); RBC Distribution Width 13.2 % (11.5-14.5); Red Blood Cell (RBC) Count 4.79 mill/uL (4.70-6.10); White Blood Cell (WBC) Count 6.5 10x3/uL (4.8-10.8)
[2023-08-11 07:12] LABS: Anion Gap 14 mmol/L (10-20); BUN (Urea Nitrogen) 20 mg/dL (8.4-25.7); Calc. Creatinine Clearance 59 mL/min (70-130); Calcium 8.9 mg/dL (7.8-10.44); Carbon Dioxide 23 mmol/L (23-31); Chloride 101 mmol/L (98-107); Estimated GFR 76; Glucose 127 mg/dL (80-115); Potassium 3.3 mmol/L (3.5-5.1); Sodium 135 mmol/L (136-145)
[2023-08-11] MEDS ORDERED: Potassium Chloride 20 MEQ in Premix 1 BAG IVPB SCH (09:00)
[2023-08-11] MEDS: Acetaminophen 500 MG TAB PO SCH ×3 (09:21→21:14)
[2023-08-11] MEDS: Hydrochlorothiazide 25 MG TAB PO SCH (09:21)
[2023-08-11] MEDS: Metoprolol Tartrate 25 MG TAB PO SCH (09:22)
[2023-08-11] MEDS: Losartan 25 MG TAB PO SCH (09:22)
[2023-08-11] MEDS: NIFEdipine XL 90 MG ER.TAB PO SCH (09:22)
[2023-08-11] MEDS: Potassium Chloride 20 MEQ in Lactated Ringer's 1,000 ML IV SCH ×3 (09:23→23:00)
[2023-08-11] MEDS: Potassium Chloride 20 MEQ TAB PO SCH ×2 (15:36→16:14)
[2023-08-12] MEDS: Piperacillin/Tazobactam 3.375 GM in Sodium Chloride 0.9% 100 ML IVPB SCH ×3 (06:19→22:00)
[2023-08-12 07:10] LABS: #Eosinphils 0.2 thou/uL (0.0-0.7); #Monocytes 0.7 thou/uL (0.11-0.59); #Neutrophils 2.7 thou/uL (1.40-6.50); %Basophils 0.8 % (0.0-1.0); %Eosinophils 3.7 % (0.0-10.0); %Lymphocytes 26.6 % (21.0-51.0); %Monocytes 14.1 % (0.0-10.0); %Neutrophils 54.4 % (42.0-75.0); Hematocrit 42.8 % (42.0-52.0); Hemoglobin 14.2 g/dL (14.0-18.0); Mean Corpuscular HGB CONC 33.2 g/dL (32.0-36.0); Mean Corpuscular Volume 87.3 fl (78.0-98.0); Mean Platelet Volume 12.3 fL (7.4-10.4); Platelet Count 144 10x3/uL (130-400); RBC Distribution Width 13.3 % (11.5-14.5); White Blood Cell (WBC) Count 4.9 10x3/uL (4.8-10.8)
[2023-08-12 08:29] LABS: Anion Gap 14 mmol/L (10-20); BUN (Urea Nitrogen) 16 mg/dL (8.4-25.7); Calc. Creatinine Clearance 57 mL/min (70-130); Calcium 9.2 mg/dL (7.8-10.44); Carbon Dioxide 23 mmol/L (23-31); Chloride 104 mmol/L (98-107); Estimated GFR 72; Glucose 72 mg/dL (80-115); Potassium 3.8 mmol/L (3.5-5.1); Sodium 137 mmol/L (136-145)
[2023-08-12] MEDS: Acetaminophen 500 MG TAB PO SCH ×3 (08:51→20:19)
[2023-08-12] MEDS: Metoprolol Tartrate 25 MG TAB PO SCH (08:51)
[2023-08-12] MEDS: Losartan 25 MG TAB PO SCH (08:52)
[2023-08-12] MEDS: Hydrochlorothiazide 25 MG TAB PO SCH (08:52)
[2023-08-12] MEDS: NIFEdipine XL 90 MG ER.TAB PO SCH (08:52)
[2023-08-12] MEDS: Potassium Chloride 20 MEQ in Lactated Ringer's 1,000 ML IV SCH ×2 (09:22→20:18)
[2023-08-13] MEDS: Potassium Chloride 20 MEQ in Lactated Ringer's 1,000 ML IV SCH ×2 (05:43→15:14)
[2023-08-13] MEDS: Piperacillin/Tazobactam 3.375 GM in Sodium Chloride 0.9% 100 ML IVPB SCH ×3 (05:43→22:16)
[2023-08-13 06:25] LABS: Hematocrit 40.4 % (42.0-52.0); Mean Corpuscular HGB CONC 32.2 g/dL (32.0-36.0); Mean Corpuscular Hemoglobin 28.3 pg (27.0-31.0); Mean Platelet Volume 11.9 fL (7.4-10.4); Platelet Count 149 10x3/uL (130-400); RBC Distribution Width 13.2 % (11.5-14.5); Red Blood Cell (RBC) Count 4.59 mill/uL (4.70-6.10)
[2023-08-13 06:45] LABS: Manual Diff?? YES
[2023-08-13 06:46] LABS: Delete Auto Diff?? YES
[2023-08-13 06:48] LABS: Anion Gap 11 mmol/L (10-20); BUN (Urea Nitrogen) 14 mg/dL (8.4-25.7); CRP (Inflammatory) 1.74 mg/dL (= or < 0.5); Calc. Creatinine Clearance 55 mL/min (70-130); Calcium 9.1 mg/dL (7.8-10.44); Carbon Dioxide 25 mmol/L (23-31); Chloride 107 mmol/L (98-107); Estimated GFR 69; Glucose 77 mg/dL (80-115); Magnesium 1.7 mg/dL (1.6-2.6); Potassium 3.9 mmol/L (3.5-5.1); Sodium 139 mmol/L (136-145)
[2023-08-13 07:20] LABS: Band 4 % (5-11); CellaVision Operator ID LAB.GE; Eosinophils 3 % (0-10); Lymphocytes 41 % (21-51); Monocytes 6 % (0-10); Neutrophil 42 % (42-75); Platelet Adequacy Comment Platelets Normal; Polychromasia SLIGHT = 2-3 cells HPF (0-2); Reactive Lymphocytes 3 % (0-10); Total Cell Count 100
[2023-08-13] MEDS: NIFEdipine XL 90 MG ER.TAB PO SCH (09:45)
[2023-08-13] MEDS: Metoprolol Tartrate 25 MG TAB PO SCH (09:46)
[2023-08-13] MEDS: Acetaminophen 500 MG TAB PO SCH ×3 (09:46→22:17)
[2023-08-13] MEDS: Losartan 25 MG TAB PO SCH (09:46)
[2023-08-13] MEDS: Saccharomyces boulardii 250 MG CAP PO SCH (09:46)
[2023-08-14] MEDS: Potassium Chloride 20 MEQ in Lactated Ringer's 1,000 ML IV SCH ×2 (02:31→15:56)
[2023-08-14 06:14] LABS: Hemoglobin 12.6 g/dL (14.0-18.0); Mean Corpuscular HGB CONC 32.3 g/dL (32.0-36.0); Mean Corpuscular Hemoglobin 28.2 pg (27.0-31.0); Mean Corpuscular Volume 87.2 fl (78.0-98.0); Mean Platelet Volume 12.4 fL (7.4-10.4); Platelet Count 148 10x3/uL (130-400); RBC Distribution Width 13.2 % (11.5-14.5); Red Blood Cell (RBC) Count 4.47 mill/uL (4.70-6.10); White Blood Cell (WBC) Count 5.8 10x3/uL (4.8-10.8)
[2023-08-14] MEDS: Piperacillin/Tazobactam 3.375 GM in Sodium Chloride 0.9% 100 ML IVPB SCH ×2 (06:15→15:56)
[2023-08-14 06:18] LABS: Delete Auto Diff?? YES; Manual Diff?? YES
[2023-08-14 06:44] LABS: CellaVision Operator ID LAB.CLH1; Eosinophils 1 % (0-10); Lymphocytes 35 % (21-51); Monocytes 5 % (0-10); Neutrophil 57 % (42-75); Platelet Adequacy Comment Platelets Normal; Reactive Lymphocytes 2 % (0-10); Total Cell Count 99
[2023-08-14 06:45] LABS: Anion Gap 14 mmol/L (10-20); BUN (Urea Nitrogen) 12 mg/dL (8.4-25.7); Calc. Creatinine Clearance 58 mL/min (70-130); Calcium 8.5 mg/dL (7.8-10.44); Carbon Dioxide 22 mmol/L (23-31); Chloride 106 mmol/L (98-107); Estimated GFR 74; Glucose 73 mg/dL (80-115); Magnesium 1.9 mg/dL (1.6-2.6); Potassium 3.8 mmol/L (3.5-5.1); Sodium 138 mmol/L (136-145)
[2023-08-14] MEDS: NIFEdipine XL 90 MG ER.TAB PO SCH (09:11)
[2023-08-14] MEDS: Metoprolol Tartrate 25 MG TAB PO SCH (09:11)
[2023-08-14] MEDS: Losartan 25 MG TAB PO SCH (09:11)
[2023-08-14] MEDS: Saccharomyces boulardii 250 MG CAP PO SCH (09:11)
[2023-08-14] MEDS: Acetaminophen 500 MG TAB PO SCH ×2 (09:12→15:56)
[2023-08-14 12:03] VITALS: BP 152/92; TEMP 98.7
== END 2023-08-14 17:26 | disposition home or self-care (01) | DRG 392 ==
LOC: ERS 21:57 → T4-A 08-10 04:19 → OBSVTOIN 08-10 08:32
PROVIDERS: ADMIT Student in an Organized Health Care Education/Training Program; ATTEND Internal Medicine
DX: K57.32 Diverticulitis of large intestine without perforation or abscess without bleeding (principal); I50.32 Chronic diastolic (congestive) heart failure; N40.0 Benign prostatic hyperplasia without lower urinary tract symptoms; F32.A Depression, unspecified; M10.9 Gout, unspecified; F17.210 Nicotine dependence, cigarettes, uncomplicated; Z20.822 Contact with and (suspected) exposure to COVID-19; Z88.8 Allergy status to other drugs, medicaments and biological substances; Z98.890 Other specified postprocedural states; Z88.1 Allergy status to other antibiotic agents; Z79.899 Other long term (current) drug therapy; I11.0 Hypertensive heart disease with heart failure
CPT/HCPCS: 36415; 71045; 74177; 80048; 80053; 81001; 83605; 83690; 83735; 85025; 86140; 87324; 87449; 96361; 96365; 96374; 96375; 96376; G0378; J1650; J1885; J2270; J2405; J2543; J3480; J3490; J7120; Q9967

== ENCOUNTER 2023-10-21 11:56 | Outpatient (CLI) | payer MEDICARE ==
[2023-10-21 13:28] LABS: #Eosinphils 0.3 10x3/uL (0.0-0.5); #Monocytes 0.5 10x3/uL (0.0-1.1); #Neutrophils 3.9 10x3/uL (1.5-8.4); %Basophils 0.6 % (0.0-2.0); %Eosinophils 5.1 % (0.0-6.0); %Lymphocytes 26.3 % (18.0-47.0); %Monocytes 7.3 % (0.0-10.0); %Neutrophils 60.4 % (40.0-75.0); Hematocrit 45.5 % (38.8-50.0); Hemoglobin 14.7 g/dL (13.5-17.5); Mean Corpuscular HGB CONC 32.3 g/dL (32.0-36.0); Mean Corpuscular Hemoglobin 28.4 pg (27.0-33.0); Mean Platelet Volume 11.6 fl (7.4-10.4); Platelet Count 185 10x3/uL (150-450); RBC Distribution Width 13.9 % (11.5-14.5); Red Blood Cell (RBC) Count 5.17 10x6/uL (4.32-5.72); White Blood Cell (WBC) Count 6.4 10x3/uL (3.5-10.5)
[2023-10-21 13:31] LABS: Anion Gap 15 mmol/L (10-20); BUN (Urea Nitrogen) 23 mg/dL (8.4-25.7); Calc. Creatinine Clearance 0 mL/min (70-130); Calcium 9.5 mg/dL (7.8-10.44); Carbon Dioxide 27 mmol/L (23-31); Chloride 105 mmol/L (98-107); Estimated GFR 63; Glucose 75 mg/dL (80-115); Potassium 4.2 mmol/L (3.5-5.1); Sodium 143 mmol/L (136-145)
== END 2023-10-21 11:57 | disposition home or self-care (01) ==
LOC: LABBT 11:56
PROVIDERS: ATTEND Surgery
DX: Z01.818 Encounter for other preprocedural examination (principal); K57.92 Diverticulitis of intestine, part unspecified, without perforation or abscess without bleeding; Z79.899 Other long term (current) drug therapy
CPT/HCPCS: 80048; 83036; 85025; 93005; 93010

== ENCOUNTER 2023-10-21 12:00 | Inpatient (IN) | payer MEDICARE ==
[2023-10-21 12:33] VITALS: BMI 21.1
[2023-10-27] MEDS ORDERED: fentaNYL 50 mcg/mL 1 mL Vial ONE ×2 (10:11→13:54)
[2023-10-27] MEDS ORDERED: Midazolam HCl 2 mg/2 ml Vial ONE (10:11)
[2023-10-27] MEDS ORDERED: Bupivacaine 0.25% HCL 30 ML VIAL ONE (10:12)
[2023-10-27] MEDS ORDERED: Dextrose 50% Abboject 50 ML SYRINGE ONE (10:19)
[2023-10-27] MEDS ORDERED: Lidocaine 1% PF 5 ML VIAL ONE (10:36)
[2023-10-27] MEDS ORDERED: Rocuronium Bromide 10 MG/ML (10ML VIAL) ONE (10:36)
[2023-10-27] MEDS ORDERED: PROPOFOL 20 ML ONE (10:36)
[2023-10-27] MEDS ORDERED: fentaNYL PF 100 MCG/2 ML SYRINGE ONE (11:20)
[2023-10-27] MEDS ORDERED: Ketamine In 0.9 % NaCl 50 MG/5 ML SYRINGE ONE (11:20)
[2023-10-27] MEDS ORDERED: cefOXitin 2 GM VIAL ONE (11:38)
[2023-10-27] MEDS ORDERED: Sodium Chloride 0.9% 100 ML ONE (11:38)
[2023-10-27] MEDS ORDERED: Dexamethasone 4 mg/ml Vial ONE (12:01)
[2023-10-27] MEDS ORDERED: ePHEDrine Sulfate 50 MG/10 ML VIAL ONE (12:01)
[2023-10-27] MEDS ORDERED: Ondansetron PF 4 MG/2 ML Vial ONE (13:21)
[2023-10-27] MEDS ORDERED: SUGAMMADEX SODIUM 200 MG/2 ML VIAL ONE (13:23)
[2023-10-27] MEDS ORDERED: Promethazine HCl 25 MG/ML VIAL IM PRN ×2 (13:44→15:08)
[2023-10-27] MEDS ORDERED: Ondansetron HCl/PF 4 MG/2 ML Vial IVP PRN (13:44)
[2023-10-27] MEDS ORDERED: HYDROmorphone 0.5 MG/0.5 ML SYRINGE ONE ×3 (14:23→15:08)
[2023-10-27] MEDS ORDERED: Ketorolac Tromethamine 30 MG (1 mL) VIAL ONE (14:32)
[2023-10-27] MEDS ORDERED: Ondansetron PF 4 MG/2 ML Vial IVP PRN (15:08)
[2023-10-27] MEDS ORDERED: Ipratropium/Albuterol 3 ML NEB NEB PRN (15:08)
[2023-10-27] MEDS ORDERED: hydrALAZINE 20 MG/ML VIAL SLOW IVP PRN (15:08)
[2023-10-27] MEDS ORDERED: cefOXitin Sodium 1 GM in Sodium Chloride 0.9% 100 ML IVPB SCH (15:15)
[2023-10-27] MEDS: Ketorolac Tromethamine 30 MG (1 mL) VIAL IVP PRN (17:43)
[2023-10-27] MEDS: D5 1/2 NS w/20 mEq KCL 1,000 ML IV SCH (17:45)
[2023-10-27] MEDS: HYDROcodone/Acetaminophen 7.5/325 mg Tablet PO PRN (17:48)
[2023-10-27] MEDS: Famotidine/PF 20 mg/2ml Vial SLOW IVP SCH (20:15)
[2023-10-27] MEDS: fentaNYL 50 mcg/mL 1 mL Vial SLOW IVP PRN (20:15)
[2023-10-27] MEDS: cefOXitin Sodium 1 GM in Sodium Chloride 0.9% 100 ML IVPB SCH (20:15)
[2023-10-27] MEDS: Famotidine 20 MG TAB PO SCH (20:16)
[2023-10-27] MEDS: Mirtazapine 30 MG TAB PO SCH (21:22)
[2023-10-28] MEDS: HYDROcodone/Acetaminophen 7.5/325 mg Tablet PO PRN (00:52)
[2023-10-28] MEDS: Ketorolac Tromethamine 30 MG (1 mL) VIAL IVP PRN (00:53)
[2023-10-28 05:13] LABS: #Monocytes 0.7 thou/uL (0.11-0.59); #Neutrophils 16.8 thou/uL (1.40-6.50); %Basophils 0.2 % (0.0-1.0); %Lymphocytes 4.6 % (21.0-51.0); %Monocytes 3.7 % (0.0-10.0); Hematocrit 42.1 % (42.0-52.0); Hemoglobin 13.4 g/dL (14.0-18.0); Mean Corpuscular HGB CONC 31.8 g/dL (32.0-36.0); Mean Corpuscular Hemoglobin 27.8 pg (27.0-31.0); Mean Corpuscular Volume 87.3 fl (78.0-98.0); Mean Platelet Volume 11.5 fL (7.4-10.4); Platelet Count 200 10x3/uL (130-400); RBC Distribution Width 13.8 % (11.5-14.5); Red Blood Cell (RBC) Count 4.82 mill/uL (4.70-6.10); White Blood Cell (WBC) Count 18.5 10x3/uL (4.8-10.8)
[2023-10-28 06:02] LABS: Anion Gap 14 mmol/L (10-20); BUN (Urea Nitrogen) 25 mg/dL (8.4-25.7); Calc. Creatinine Clearance 29 mL/min (70-130); Calcium 8.6 mg/dL (7.8-10.44); Carbon Dioxide 20 mmol/L (23-31); Chloride 105 mmol/L (98-107); Estimated GFR 34; Glucose 119 mg/dL (80-115); Potassium 4.4 mmol/L (3.5-5.1); Sodium 135 mmol/L (136-145)
[2023-10-28] MEDS: Famotidine/PF 20 mg/2ml Vial SLOW IVP SCH (09:35)
[2023-10-28] MEDS: Losartan 25 MG TAB PO SCH (09:35)
[2023-10-28] MEDS: NIFEdipine XL 30 MG ER.TAB PO SCH (09:43)
[2023-10-28] MEDS: fentaNYL 50 mcg/mL 1 mL Vial SLOW IVP PRN ×3 (10:41→23:54)
[2023-10-28] MEDS: Famotidine 20 MG TAB PO SCH (10:41)
[2023-10-28] MEDS: cefOXitin Sodium 1 GM in Sodium Chloride 0.9% 100 ML IVPB SCH (10:43)
[2023-10-28] MEDS: D5 1/2 NS w/20 mEq KCL 1,000 ML IV SCH ×3 (10:44→20:15)
[2023-10-28] MEDS ORDERED: Acetaminophen 325 MG TAB PO PRN (14:07)
[2023-10-28] MEDS: Mirtazapine 30 MG TAB PO SCH (20:07)
[2023-10-28] MEDS ORDERED: Famotidine 20 MG TAB PO SCH (21:00)
[2023-10-28] MEDS ORDERED: Famotidine/PF 20 mg/2ml Vial SLOW IVP SCH (21:00)
[2023-10-29] MEDS: D5 1/2 NS w/20 mEq KCL 1,000 ML IV SCH (04:24)
[2023-10-29] MEDS: HYDROcodone/Acetaminophen 7.5/325 mg Tablet PO PRN (04:25)
[2023-10-29 04:52] LABS: #Eosinphils 0.3 thou/uL (0.0-0.7); #Monocytes 0.6 thou/uL (0.11-0.59); #Neutrophils 8.4 thou/uL (1.40-6.50); %Basophils 0.3 % (0.0-1.0); %Eosinophils 3.1 % (0.0-10.0); %Lymphocytes 11.5 % (21.0-51.0); %Monocytes 5.9 % (0.0-10.0); %Neutrophils 78.7 % (42.0-75.0); Hemoglobin 10.8 g/dL (14.0-18.0); Mean Corpuscular HGB CONC 33.1 g/dL (32.0-36.0); Mean Corpuscular Hemoglobin 28.6 pg (27.0-31.0); Mean Corpuscular Volume 86.5 fl (78.0-98.0); Mean Platelet Volume 11.9 fL (7.4-10.4); Platelet Count 140 10x3/uL (130-400); Red Blood Cell (RBC) Count 3.77 mill/uL (4.70-6.10); White Blood Cell (WBC) Count 10.6 10x3/uL (4.8-10.8)
[2023-10-29 04:55] LABS: Hematocrit 32.6 % (42.0-52.0)
[2023-10-29 05:20] LABS: Anion Gap 8 mmol/L (10-20); BUN (Urea Nitrogen) 15 mg/dL (8.4-25.7); Calc. Creatinine Clearance 54 mL/min (70-130); Calcium 8.3 mg/dL (7.8-10.44); Carbon Dioxide 22 mmol/L (23-31); Chloride 110 mmol/L (98-107); Estimated GFR 71; Glucose 98 mg/dL (80-115); Potassium 4.3 mmol/L (3.5-5.1); Sodium 136 mmol/L (136-145)
[2023-10-29] MEDS: Losartan 25 MG TAB PO SCH (08:24)
[2023-10-29] MEDS: NIFEdipine XL 30 MG ER.TAB PO SCH (08:24)
[2023-10-29 08:53] VITALS: TEMP 98.9
[2023-10-29] MEDS: fentaNYL 50 mcg/mL 1 mL Vial SLOW IVP PRN (09:17)
[2023-10-29 11:58] VITALS: BP 149/89
== END 2023-10-29 14:20 | disposition home or self-care (01) | DRG 331 ==
LOC: SURG A 10-27 07:56 → SURG B 10-27 16:47
PROVIDERS: ADMIT Surgery; ATTEND Surgery
PROC: 0DBN4ZZ Excision of Sigmoid Colon, Percutaneous Endoscopic Approach (ICD-10-PCS; principal; 2023-10-27)
PROC: 8E0W4CZ Robotic Assisted Procedure of Trunk Region, Percutaneous Endoscopic Approach (ICD-10-PCS; 2023-10-27)
PROC: 3E033XZ Introduction of Vasopressor into Peripheral Vein, Percutaneous Approach (ICD-10-PCS; 2023-10-27)
DX: K57.32 Diverticulitis of large intestine without perforation or abscess without bleeding (principal); E29.1 Testicular hypofunction; F32.A Depression, unspecified; G47.30 Sleep apnea, unspecified; I10 Essential (primary) hypertension; N40.0 Benign prostatic hyperplasia without lower urinary tract symptoms; M10.9 Gout, unspecified; F17.210 Nicotine dependence, cigarettes, uncomplicated; M54.6 Pain in thoracic spine; E78.5 Hyperlipidemia, unspecified; M54.32 Sciatica, left side; Z90.89 Acquired absence of other organs; Z98.890 Other specified postprocedural states; Z90.79 Acquired absence of other genital organ(s); Z80.42 Family history of malignant neoplasm of prostate; Z83.3 Family history of diabetes mellitus; Z82.49 Family history of ischemic heart disease and other diseases of the circulatory system
CPT/HCPCS: 36415; 36416; 80048; 85025; 88307; A4649; C1889; J0694; J1100; J1170; J1885; J2250; J2405; J2704; J3010; J3480; J3490; J7999; S0020; S0028

== ENCOUNTER 2024-02-22 23:32 | Emergency (ER) | payer MEDICARE ==
[2024-02-22] MEDS ORDERED: Oxymetazoline HCl 0.05% (30 ML BOT) ONE (23:39)
[2024-02-23] MEDS ORDERED: Tranexamic Acid 1,000 MG/10 ML VIAL ONE ×2 (00:08→01:37)
== END 2024-02-23 02:27 | disposition home or self-care (01) ==
LOC: ERS 23:32
DX: R04.0 Epistaxis (principal); I10 Essential (primary) hypertension; F17.210 Nicotine dependence, cigarettes, uncomplicated
CPT/HCPCS: 99283

== ENCOUNTER 2024-07-13 09:45 | Outpatient (CLI) | payer MEDICARE | END 2024-07-13 09:46 | disposition home or self-care (01) | LOC: BICCT 09:45 | PROVIDERS: ATTEND Nurse Practitioner | DX: Z12.2 Encounter for screening for malignant neoplasm of respiratory organs (principal); Z13.6 Encounter for screening for cardiovascular disorders; F17.218 Nicotine dependence, cigarettes, with other nicotine-induced disorders; I70.0 Atherosclerosis of aorta; I77.811 Abdominal aortic ectasia | CPT/HCPCS: 71271; 76775 ==

== ENCOUNTER 2025-07-25 13:22 | Outpatient (CLI) | payer MEDICARE | END 2025-07-25 13:23 | disposition home or self-care (01) | LOC: BICCT 13:22 | PROVIDERS: ATTEND Internal Medicine | DX: Z12.2 Encounter for screening for malignant neoplasm of respiratory organs (principal); F17.218 Nicotine dependence, cigarettes, with other nicotine-induced disorders | CPT/HCPCS: 71271 ==